=== PATIENT | female | born 1935 | race Caucasian/White ===

== ENCOUNTER 2024-10-22 07:38 | Observation (INO) | payer OTHER, SELFPAY ==
[2024-10-22] VITALS (9 sets, daily range): BP systolic 167–199; BP diastolic 78–99; PULSE 58–87; RESP 16–97; TEMP 36.3–37.3; O2SAT 94–98; BMI 19.8
--- NOTE | 2024-10-22 07:49 | XR_ITS ---
Examination: CT brain head without contrast. 2-D sagittal coronal reconstructions Date and time of exam:October 22, 2024 0756 hours INDICATIONS: Stroke alert, onset dizziness today CTDI: vol (mGy):46.4 DLP: (mGycm):910 Technique: Multiple CT axial sections of the brain have been obtained, 5 mm slice thickness. Contrast has not been administered. 2-D sagittal, coronal reconstructions have been obtained Low dose protocols were performed. One or more of the following dose reduction techniques were used; automated exposure control, adjustment of the mA and/or KV according to patient size, use of iterative reconstruction technique. Findings: No significant ventricular enlargement. Intra-axial or extra-axial hemorrhage density is not seen. No mass effect or midline shift Basal cisterns are not remarkable. Fourth ventricle is midline. Cranial vault intact. Impression: Negative for acute hemorrhage, mass effect or midline shift
--- NOTE | 2024-10-22 07:49 | EKG_ITS ---
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: : 1935 Requested By: Kimi Hung Order Number: [id number] Reading MD: Kimi Hung Measurements Intervals [place] Rate: 61 P: HI: QRS: -10 QRSD: 93 T: 76 QT: 421 QTc: 425 Interpretive Statements SUPRAVENTRICULAR RHYTHM VOLTAGE CRITERIA FOR LVH [MEETS CRITERIA IN ONE OF: R(aVL), S(V1), R(V5), R(V5/V6)+S(V1)] POSSIBLE SEPTAL MYOCARDIAL INFARCTION , OF INDETERMINATE AGE [30 ms Q WAVE IN V1/V2] Compared to ECG 03/30/2022 06:57:26 Supraventricular rhythm now present Myocardial infarct finding now present Atrial fibrillation no longer present T-wave abnormality no longer present Possible ischemia no longer present /store/S0/[id number]/ecg/[id number].pdf
--- NOTE | 2024-10-22 07:49 | XR_ITS ---
Examination: CTA carotids with intravenous contrast CTA brain, head with intravenous contrast. 2-D sagittal, coronal reconstructions. 3-D reconstructions. Exam date and time: October 22, 2024, 0812 hours INDICATIONS: Stroke alert, onset focal neurologic deficit today CTDI: vol (mGy) 14.5 DLP: (mGycm) 397 Technique: Multiple CTA axial brain, head carotid images post intravenous contrast injection 100 cc, Isovue-370. 2-D sagittal, coronal reconstructions. 3-D reconstructions, 3-D post processing including vascular maximum intensity projection images. Low dose protocols were performed. One or more of the following dose reduction techniques were used; automated exposure control, adjustment of the mA and/or KV according to patient size, use of iterative reconstruction technique. Findings: Calcified granuloma in the right upper lobe No significant common carotid carotid bifurcation or internal carotid artery stenoses Mildly dominant left vertebral artery, 70% stenosis proximal right vertebral artery Irregularity of posterior cerebral artery branches but no large vessel cerebral arterial occlusions IMPRESSION: No significant carotid artery stenoses in the neck 70% stenosis proximal right vertebral artery, consider carotid vertebral sonography follow-up to assess for retrograde flow in the right vertebral artery No cerebral large vessel arterial occlusions or thrombus
--- NOTE | 2024-10-22 07:49 | XR_ITS ---
Examination: AP chest single view Technique one AP portable upright chest single view Date and time: October 22, 2024, 0937 hrs., Comparison May 13, 2014 Indications: Chest pain today Findings: Mild prominence left ventricle. No pneumonia or pulmonary edema. Severe osteopenia. Impression: No pneumonia or pulmonary edema.
--- NOTE | 2024-10-22 08:32 | PD.EDDIZZY ---
ED Dizzyness RME/HPI General Chief Complaint: Dizziness Stated Complaint: DIZZY, FALL, HIT L) SIDE OF FACE, LAC L) ARM, PEREZ Time Seen by Provider: 10/22/24 07:49 Arrival date/time: 10/22/24 07:38 RME / HPI RME / HPI Narrative: 89 year old female with history of dementia, CVA, hypertension, and colon cancer presents to the ED brought in by daughter for evaluation of dizziness beginning this morning. Per daughter, patient also suffered a ground level fall, striking the left side of face and left arm on the floor. In the ED, the patient states she doesn't recall what occurred. Daughter mentioned patient had a stroke several years back and had experienced similar dizziness. Related Data Home Medications ?Medication ?Instructions ?Recorded ?Confirmed diltiazem HCl 240 mg 240 mg PO QDAY 12/07/17 10/22/24 capsule,extended release 24 hr famotidine 20 mg tablet 20 mg PO DAILY 12/08/17 10/22/24 calcium 600 mg (as 1 tab PO BID 10/22/24 10/22/24 carbonate)-vitamin D3 10 mcg (400 unit) tablet clopidogrel 75 mg tablet 75 mg PO QAM 10/22/24 10/22/24 donepezil 5 mg tablet 5 mg PO QDAY 10/22/24 10/22/24 ezetimibe 10 mg-simvastatin 10 mg 1 tab PO QPM 10/22/24 10/22/24 tablet lisinopril 40 mg tablet 40 mg PO QAM 10/22/24 10/22/24 memantine 5 mg tablet 5 mg PO BID 10/22/24 10/22/24 raloxifene 60 mg tablet 60 mg PO QDAY 10/22/24 10/22/24 Allergies Allergy/AdvReac Type Severity Reaction Status Date / Time codeine Allergy Severe Nausea Verified 10/22/24 07:40 Review of Systems Review of Systems Systems Reviewed: All systems reviewed, normal except as documented Past Medical History Past Medical History NEUROLOGIC: Positive Neurological Disorders, Transient Ischemic Attacks (TIA) and Dementia CARDIAC: Positive Cardiac Disorders, Hypercholesterolemia and Hypertension GASTROINTESTINAL: Positive Colorectal Cancer MUSCULOSKELETAL: Positive Musculoskeletal Disorders and Arthritis ENT: Positive Cataracts OTHER HISTORY: Positive Colorectal Cancer Surgical History SURGICAL: Positive Bowel Surgery and Section Social History SMOKING STATUS: Never smoker ED Exam Narrative Physical exam: GENERAL APPEARANCE: alert and oriented x 4, well-developed, well-nourished, no acute distress HEENT: Normocephalic, ecchymosis left cheek; pupils equal, round, reactive to light; EOMI; mucous membranes pink, moist; oropharynx clear NECK: Supple LUNGS: CTABL; no wheezes, no rales, no rhonchi HEART: Regular rate, regular rhythm; normal S1, S2; no murmurs ABDOMEN: non distended; normal BS; soft, no tenderness, no guarding, no rebound; no masses, no organomegaly, no hernia BACK: no CVA tenderness EXTREMITIES: skin tear to the left forearm; no edema NEUROLOGIC: awake; appears slightly confused; cranial nerves II-XII grossly intact; no focal sensory or motor deficits PSYCHIATRIC: appears slightly confused SKIN: warm, dry, normal color; no rashes Course Course Course Narrative: 0746: Evaluated in [facility] 1 0749: Stroke alert activated 0915: I spoke with resident Dr. Young working with Dr. Knowles. Discussed patients PMHx, HPI, ED course, exam findings, labs, and radiology results. The hospitalist agree to accept the patient for admission. Quality Measures Suspected type of Stroke: Non Acute Last known well (date): 10/21/24 Last know well: unknown Tenecteplase given: Reason(s) TPA not given: Outside the time window not given stroke Orders Category Date Time Status Bedside Blood Glucose NOW Care 10/22/24 07:49 Active Drug Coordinator NOW Care 10/22/24 07:49 Active Continuous Pulse Oximetry NOW Care 10/22/24 07:49 Completed EKG (ED ONLY) *Do not use* NOW Care 10/22/24 07:49 Completed In and Out Catheter NEEDED Care 10/22/24 07:49 Active Insert IV NOW Care 10/22/24 07:49 Active NIH Stroke Scale now Care 10/22/24 07:49 Active NPO NOW Care 10/22/24 07:49 Active Nurse Swallow Screen x1 Care 10/22/24 07:49 Completed Consult to Neurology / Tele-Neurology Routine Cons 10/22/24 07:[address] angio stroke protocol Stat Exams 10/22/24 07:[address] stroke protocol Stat Exams 10/22/24 07:49 Completed EKG (ED Only) Stat Exams 10/22/24 07:49 Draft XR chest 1V portable Stat Exams 10/22/24 07:49 Completed B-Type Natriuretic Peptide Stat Lab 10/22/24 08:35 Completed CBC Stat Lab 10/22/24 08:35 Completed Comprehensive Metabolic Panel Stat Lab 10/22/24 08:35 Completed Drug Screen,Urine Stat Lab 10/22/24 10:28 Completed Magnesium Stat Lab 10/22/24 08:35 Completed Partial Thromboplastin Time Stat Lab 10/22/24 08:35 Completed Prothrombin Time with INR Stat Lab 10/22/24 08:35 Completed Troponin I Stat Lab 10/22/24 08:35 Completed Urinalysis Stat Lab 10/22/24 10:28 Completed Urine Culture Stat Lab 10/22/24 10:28 Received Oxygen Delivery NOW RT 10/22/24 07:49 Active Vital Signs Vital signs: Vital Signs Temperature 98.1 F 10/22/24 07:44 Pulse Rate 68 10/22/24 07:44 Respiratory Rate 17 10/22/24 07:44 Blood Pressure 168/81 H 10/22/24 07:44 Pulse Oximetry (%) 98 10/22/24 07:44 Oxygen Delivery Method Room Air 10/22/24 07:44 Pulse ox is 98% on room air which is adequate. Dizziness MDM Narrative MDM Narrative:: IGlenys am scribing for and in the presence of Dr. Caceres. Patient data External records reviewed:: [facility] previous records (I reviewed admission from 03/30/2022 through 04/01/2024 ) Clinical information provided by:: family (daughter provides history ) Social determinants that could affect healthcare access:: none Patient has the following chronic illnesses:: dementia, CVA, hypertension, and colon cancer How is presenting disease/condition affected by chronic disease/condition?: exacerbated by Evaluation data The following diagnostics were reviewed and interpreted by me:: lab results, radiology exam(s) and EKG tracing(s) (10/22/2024 @ 08:33 AM. Sinus rhythm, Q-wave in V1 and V2, mild ST depression in V6, no acute ischemic changes. ) Lab and/or radiology exams considered but not ordered:: None Interpretation Summary: Ordering Physician: Kimi Caceres MD Date of Service: 10/22/24 Procedure(s): CT stroke protocol Accession Number(s): [id number] cc: Anuel Lockett MD; Kimi Caceres MD~ Examination: CT brain head without contrast. 2-D sagittal coronal reconstructions Date and time of exam:October 22, 2024 0756 hours INDICATIONS: Stroke alert, onset dizziness today CTDI: vol (mGy):46.4 DLP: (mGycm):910 Technique: Multiple CT axial sections of the brain have been obtained, 5 mm slice thickness. Contrast has not been administered. 2-D sagittal, coronal reconstructions have been obtained Low dose protocols were performed. One or more of the following dose reduction techniques were used; automated exposure control, adjustment of the mA and/or KV according to patient size, use of iterative reconstruction technique. Findings: No significant ventricular enlargement. Intra-axial or extra-axial hemorrhage density is not seen. No mass effect or midline shift Basal cisterns are not remarkable. Fourth ventricle is midline. Cranial vault intact. Impression: Negative for acute hemorrhage, mass effect or midline shift Dictated By: Anuel Lockett MD Signed By: <Electronically signed by Anuel Lockett MD in [place]> 10/22/24 0815 Ordering Physician: Kimi Caceres MD Date of Service: 10/22/24 Procedure(s): CT angio stroke protocol Accession Number(s): [id number] cc: Anuel Lockett MD; Kimi Caceres MD~ Examination: CTA carotids with intravenous contrast CTA brain, head with intravenous contrast. 2-D sagittal, coronal reconstructions. 3-D reconstructions. Exam date and time: October 22, 2024, 0812 hours INDICATIONS: Stroke alert, onset focal neurologic deficit today CTDI: vol (mGy) 14.5 DLP: (mGycm) 397 Technique: Multiple CTA axial brain, head carotid images post intravenous contrast injection 100 cc, Isovue-370. 2-D sagittal, coronal reconstructions. 3-D reconstructions, 3-D post processing including vascular maximum intensity projection images. Low dose protocols were performed. One or more of the following dose reduction techniques were used; automated exposure control, adjustment of the mA and/or KV according to patient size, use of iterative reconstruction technique. Findings: Calcified granuloma in the right upper lobe No significant common carotid carotid bifurcation or internal carotid artery stenoses Mildly dominant left vertebral artery, 70% stenosis proximal right vertebral artery Irregularity of posterior cerebral artery branches but no large vessel cerebral arterial occlusions IMPRESSION: No significant carotid artery stenoses in the neck 70% stenosis proximal right vertebral artery, consider carotid vertebral sonography follow-up to assess for retrograde flow in the right vertebral artery No cerebral large vessel arterial occlusions or thrombus Dictated By: Anuel Lockett MD Signed By: <Electronically signed by Anuel Lockett MD in [place]> 10/22/24 0836 Ordering Physician: Kimi Caceres MD Date of Service: 10/22/24 Procedure(s): XR chest 1V portable Accession Number(s): [id number] cc: Chirag Fernández MD; Anuel Lockett MD; Kimi Caceres MD~ Examination: AP chest single view Technique one AP portable upright chest single view Date and time: October 22, 2024, 0937 hrs., Comparison May 13, 2014 Indications: Chest pain today Findings: Mild prominence left ventricle. No pneumonia or pulmonary edema. Severe osteopenia. Impression: No pneumonia or pulmonary edema. Dictated By: Anuel Lockett MD Signed By: <Electronically signed by Anuel Lockett MD in [place]> 10/22/24 1044 Medications / Prescriptions Medications or Prescriptions considered but not ordered:: None Medication administrations:: Medication Administration History Acetaminophen (Acetaminophen 325 Mg Tablet) 650 mg PO Q6H PRN PRN Reason: Fever >100.4 Stop: 11/21/24 10:57 Aspirin (Aspirin Ec 81 Mg Tabec) 81 mg PO QDAY KALLI Stop: 11/22/24 08:59 Atorvastatin Calcium (Atorvastatin Calcium 20 Mg Tablet) 20 mg PO HS PENDING SALE TO [facility] Stop: 11/21/24 20:59 Clopidogrel Bisulfate (Clopidogrel Bisulfate 75 Mg Tablet) 75 mg PO QDAY PENDING SALE TO [facility] Stop: 11/22/24 08:59 Docusate Sodium (Docusate Sod 100 Mg Capsule) 100 mg PO QDAY PRN; Protocol PRN Reason: CONSTIPATION Stop: 11/21/24 11:02 Donepezil HCl (Donepezil Hcl 5 Mg Tablet) 5 mg PO QDAY PENDING SALE TO [facility] Stop: 11/21/24 13:59 Famotidine (Famotidine 20 Mg Tablet) 20 mg PO DAILY PENDING SALE TO [facility] Stop: 11/21/24 11:14 Last Admin: 10/22/24 12:27 Dose: 20 mg Documented By: PAT Heparin Sodium (Porcine) (Heparin Sod Inj 5000 Unit/Ml Vial) 5,000 unit SC Q8HR PENDING SALE TO [facility] Stop: 11/05/24 13:59 Hydralazine HCl (Hydralazine Inj 20 Mg/Ml Vial) 10 mg IVP Q8H PRN PRN Reason: SBP > 220, DBP >120 Stop: 11/21/24 15:59 Sodium Chloride (Ns) 1,000 mls @ 80 mls/hr IV .[id number] PENDING SALE TO [facility] Stop: 10/23/24 00:14 Last Admin: 10/22/24 12:28 Dose: 80 mls/hr Documented By: PAT Lisinopril (Lisinopril 20 Mg Tablet) 40 mg PO QAM PENDING SALE TO [facility] Stop: 11/21/24 14:29 Meclizine HCl (Meclizine Hcl 25 Mg Tablet) 25 mg PO TID PRN PRN Reason: DIZZINESS Stop: 11/21/24 13:24 Memantine (Memantine Hcl 5 Mg Tablet) 5 mg PO BID PENDING SALE TO [facility] Stop: 11/21/24 13:59 Ondansetron HCl (Ondansetron Inj 2 Mg/Ml Inj 2 Ml) 4 mg IVP Q6H PRN; Protocol PRN Reason: NAUSEA OR VOMITING Stop: 11/21/24 10:57 Raloxifene HCl (Raloxifene 60 Mg Tablet) 60 mg PO QDAY PENDING SALE TO [facility] Stop: 11/21/24 13:59 Sennosides (Senna Tablet) 1 tab PO QDAY PRN; Protocol PRN Reason: constipation Stop: 11/21/24 10:57 Discontinued Medications Acetaminophen (Acetaminophen 325 Mg Tablet) 650 mg PO Q6H PRN PRN Reason: Fever >101.5 Stop: 11/21/24 10:57 Aspirin (Aspirin 325 Mg Tablet) 325 mg PO X1 ONE Stop: 10/22/24 11:31 Last Admin: 10/22/24 12:27 Dose: 325 mg Documented By: PAT Clopidogrel Bisulfate (Clopidogrel Bisulfate 75 Mg Tablet) 75 mg PO X1 ONE Stop: 10/22/24 11:13 Last Admin: 10/22/24 12:06 Dose: Not Given Documented By: PAT Non-Admin Reason: Other, see note Comments: Patient took this med at home this AM None Consultations Consultation(s) initiated? (list below): Yes Consultation #1 (Physician, Specialty, Details): I spoke with teleneurologist Dr. Amaya, states patient is not a TNK candidate. Time: 08:11 Diagnosis Most likely diagnosis given after review of the tests above:: Dizziness Admission Indicated Admission indicated?: indicated Admission Request Was there a request for admission?: Yes Admission Attestation Admission request attestation: Discussed case with [] from Hospitalist service regarding admission. Discussed patients ED course, exam findings, labs, and radiology results. The Hospitalist [agrees,declines] to accept the patient for admission. Disposition Plan Disposition Plan: Admit Discharge Plan Plan Patient Disposition: Admit Acute Care w/in Hospital Problem List Clinical Impression: Dizziness
--- NOTE | 2024-10-22 08:35 | PRELIM_ITS ---
CT scan of the head without intravenous contrast (axial sections with sagittal and coronal reformats) October 22, 2024 0756 hours Clinical history: Focal neuro deficit, stroke suspected. Reference is made to the prior report dated March 30, 2022. Findings: There is no evidence of intracranial hemorrhage, mass effect or midline shift. There are diffuse periventricular white matter hypodensities, compatible with chronic small vessel ischemia. There is moderate volume loss. There is atheromatous calcification of the intracranial arteries. 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 The calvarium is unremarkable. The mastoid air cells and the visualized paranasal sinuses are clear. Impression: No evidence of intracranial hemorrhage, mass effect or midline shift. Periventricular chronic small vessel ischemia and volume loss. No significant interval change as compared with the prior report. Discussion Details: Results verbally communicated to : Dr. Caceres at 08:26 AM 10/22/2024 Report Electronically Signed By: Veronica Mcintyre 10/22/2024 8:34:51 AM [EST]
[2024-10-22 08:53] LABS: Basophils # (Auto) 0.0 Thou/mm3 (0.0-0.2); Basophils % (Auto) 0 % (0-2.5); Eosinophils # (Auto) 0.2 Thou/mm3 (0.0-0.5); Eosinophils % (Auto) 3 % (0-10); Hematocrit 39.6 % (36.0-46.0); Hemoglobin 13.1 g/dL (12.0-16.0); Immature Granulocytes Auto 0.01 Thou/mm3 (0.00-0.00); Lymphocytes # (Auto) 1.8 Thou/mm3 (1.0-4.8); Lymphocytes % (Auto) 25 % (10-50); Mean Corpuscular HGB Conc 33.1 g/dl (31.0-37.0); Mean Corpuscular Hemoglobin 30.4 pg (25.0-35.0); Mean Corpuscular Volume 92 fL (80-100); Monocytes # (Auto) 0.4 Thou/mm3 (0.0-0.8); Monocytes % (Auto) 5 % (0-12); Neutrophils # (Auto) 4.7 Thou/mm3 (1.8-7.7); Neutrophils % (Auto) 66 % (37-80); Nucleated Red Blood Cell # 0.00 Thou/mm3 (0.00-0.00); Nucleated Red Blood Cell % 0 /100 WBC (0); Platelet Count 208 Thou/mm3 (140-440); RDW Standard Deviation 43.8 fL (36.4-46.3); Red Blood Count 4.31 Miln/mm3 (4.00-5.20); White Blood Count 7.1 Thou/mm3 (3.6-11.0)
[2024-10-22 09:17] LABS: Alanine Aminotransferase 13 U/L (10-49); Albumin, Serum 3.8 gm/dL (3.4-4.8); Albumin/Globulin Ratio 2.0 (1.2-2.2); Alkaline Phosphatase 62 U/L (46-116); Anion Gap 9 (7-16); Aspartate Amino Transferase 19 U/L (0-34); BUN/Creatinine Ratio 13 Ratio (12-20); Bilirubin,Total 0.8 mg/dL (0.3-1.2); Blood Urea Nitrogen 13 mg/dL (9-23); Calcium 8.9 mg/dL (8.3-10.6); Calcium (Corrected) 9.1 mg/dL (8.5-10.1); Carbon Dioxide 23.9 mMol/L (20.0-31.0); Chloride 108 mMol/L (98-107); Creatinine (Component) 1.0 mg/dL (0.6-1.3); Estimated Creatinine Clearance 33.1 mL/min (>60); Globulin 1.9 gm/dL (2.3-3.5); Glucose 115 mg/dL (74-106); Magnesium 2.0 mg/dL (1.6-2.6); Osmolality,Calculated 282 (275-295); Potassium 3.6 mMol/L (3.4-5.1); Sodium 141 mMol/L (136-145); Total Protein 5.7 gm/dL (5.7-8.2); Troponin I < 0.020 ng/mL (0.0-0.045); eGFR 54 See Note
[2024-10-22 09:30] LABS: B-Type Natriuretic Peptide 99 pg/mL (0-100)
[2024-10-22 09:46] LABS: INR 1.1 (0.9-1.3); Partial Thromboplastin Time 24.4 Seconds (22.0-36.0); Prothrombin Time 11.5 Seconds (9.0-12.2)
[2024-10-22 10:42] LABS: Collection Type, Urine Catheter
--- NOTE | 2024-10-22 10:56 | ESHP_ITS ---
<Statement entered by Gal Castro MD - 10/23/24 09:06> Patient was examined and case was reviewed with team including attending physician. Note reviewed, I agree with most of its contents and agree with the patient's care as documented by Dr. Gutierrez 89-year-old female with past medical history of dementia, prior CVA, hypertension, history of colon cancer who presented to the ED due to new onset dizziness since this morning. Patient that morning had ground-level fall hurting her arms. Patient also complaining of headache which resolved while here in the ED. Daughter also endorses some drooping of the left eye. Stroke alert was called and patient was admitted for CVA workup. CT head negative for acute hemorrhage, midline shift, mass effect, CTA head and neck negative for LVO. Patient will undergo workup including MRI brain, echocardiogram with bubble study. Will allow permissive hypertension at this time. Case discussed with my attending Dr. Benson Castro MD PGY-2 Disclaimer: Despite multiple revisions, due to the dictation software being used, the document bellow may not be free of grammatical errors including phonetic/typographic errors. However, this does not deter from our commitment to providing health care in the patient's best interest in mind. Documentation for date of: 10/22/24 HPI History of Present Illness History of present illness: Pt is an 89 y.o F with PMH of dementia, CVA, hypertension, and colon cancer presented to the ED brought in by daughter, Rosa, for evaluation of dizziness beginning this morning. Daughter states that pt suffered a ground level fall leading to injury of her left arm and the left side of her face. Pt's left eye is swollen and drooping but pt denies any acute changes to vision. Pt endorses headache with pain located towards the back of her head which began after her fall but states that it has now resolved. The patient states that she doesn't recall what occurred or where her fall occurred, just that she fell at some point in the night. Daughter mentioned patient had a stroke several years back and had experienced similar dizziness and drooping of the left eyelid. Last known well time is unknown at this time. At baseline, patient is reported to be independent and lives with her son in the home per daughter. Per daughter, pt consistently is taking her medication as prescribed to the best of her knowledge. Pt was admitted for CVA rule out. ED Course: - Vitals: BP 168/81, HR 68, RR 17, T 98.1F, O2 sat 98% on room air. - Labs: Hgb 13.1, WBC 7.1; sodium 141, potassium 3.6, eGFR 54, glucose 115. UA: (+) Leukocyte Esterase and 7 RBC's . - Imaging: Head CT: No hemorrhage, mass effect, or midline shift; Head Neck CTA: No neck arterial stenosis. 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 Review of Systems Review of Systems Narrative Review of Systems: GENERAL: Denies fevers/chills or diaphoresis. HEENT: Denies visual/hearing changes. Reports headache with pain radiating towards the back of her head. Swelling of the L orbit noted. NEURO: Denies unusual weakness or difficulty speaking. Pts cognition at baseline CARDIO: Denies chest pain or palpitations. PULM: Denies SOB, coughing, or wheezing. Denies any sputum production GI: Endorses nausea and vomiting. Denies abdominal pain, hematuria, diarrhea, or constipation URO: Denies burning/itching/pain/urinary changes. MSK/EXT/SKIN: Denies joint/skeletal/muscle pain. Laceration noted on L arm. B ruising on R arm noted. Past Medical History Past Medical History Comments PMH COMMENT: PMH: CVA without residual deficits, hypertension, dementia, and colon cancer FH: Hypertension Surgical hx: Cataracts, hysterectomy, colon cancer removal Social hx: Denies alcohol, tobacco, or drug use Travel hx: No recent travel Exam Vital Signs Temp Pulse Resp BP Pulse Ox O2 Del Method 98.1 F 58 L 16 167/78 H 96 Room Air 10/22/24 07:44 10/22/24 08:49 10/22/24 08:49 10/22/24 08:49 10/22/24 08:49 10/22/24 08:49 Narrative Exam General: AOx1 (person only), cooperative, HEENT: ARLENE, neck supple. Trauma to the L orbit noted with swelling present on exam. Heart: RRR, S1 and S2 without clicks or murmurs Lungs: Clear on auscultation bilaterally, no difficulty breathing Abdomen: Soft, nontender. Bowel sounds present on all quadrants, no organomegaly Skin: Intact, no cyanosis or edema noted. Vascular: Peripheral pulses palpable Neuro: No focal neurological deficits noted. L sided eye drooping noted. Bilateral Upper and lower extremity strength 5/5 with sensations intact Results: Labs 10/23/24 04:38 10/23/24 04:38 Labs: Short CBC 10/22/24 Range/Units 08:35 WBC 7.1 (3.6-11.0) Thou/mm3 Hgb 13.1 (12.0-16.0) g/dL Hct 39.6 (36.0-46.0) % Plt Count 208 (140-440) Thou/mm3 BMP 10/22/24 08:35 Sodium 141 Potassium 3.6 Chloride 108 H Carbon Dioxide 23.9 BUN 13 Creatinine 1.0 Glucose 115 H Calcium 8.9 Cardiac Enzymes 10/22/24 Range/Units 08:35 Troponin I < 0.020 (0.0-0.045) ng/mL Liver Function 10/22/24 Range/Units 08:35 Total Bilirubin 0.8 (0.3-1.2) mg/dL AST 19 (0-34) U/L ALT 13 (10-49) U/L Alkaline Phosphatase 62 (46-116) U/L Albumin 3.8 (3.4-4.8) gm/dL Quality Measures Quality Measures stroke Suspected type of Stroke: Unknown at this time Tenecteplase given: Reason(s) Tenecteplase not given: Unable to determine eligibility not given Rehab services: PT evaluation ordered VTE Prophylaxis: pharmaceutical Antithrombotic by day 2:: ordered Statin ordered: not ordered Anticoagulation ordered for A-fib or flutter (current or hx): not indicated Advance care planning discussed with:: patient Medications Home Medications and Allergies Home Medications ?Medication ?Instructions ?Recorded ?Confirmed ?Type diltiazem HCl 240 mg 240 mg PO QDAY 12/07/1710/06 History capsule,extended release 24 hr famotidine 20 mg tablet 20 mg PO DAILY 12/08/1710/06 History calcium 600 mg (as 1 tab PO BID 10/22/24 History carbonate)-vitamin D3 10 mcg (400 unit) tablet clopidogrel 75 mg tablet 75 mg PO QAM 10/22/24 History donepezil 5 mg tablet 5 mg PO QDAY 10/22/24 History ezetimibe 10 mg-simvastatin 10 mg 1 tab PO QPM 5 10/22/24 History tablet lisinopril 40 mg tablet 40 mg PO QAM 10/22/24 History memantine 5 mg tablet 5 mg PO BID 10/22/24 5 History raloxifene 60 mg tablet 60 mg PO QDAY 10/22/2410/22 History Allergies Allergy/AdvReac Type Severity Reaction Status Date / Time codeine Allergy Severe Nausea Verified 10/22/24 07:40 Assessment & Plan Plan Patient is a 87-year-old female with 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 #Left facial drop #Possible CVA Pt presented to hospital with dizziness and acute drooping of L eye along with unwitnessed ground level fall. Pt daughter states that she does not know the last well known time and estimated it to be sometime last night. - tPA not utilized given last known well time > 4.5 hours per current history given - Tele Neuro recommendations at this time are MRI w/o contrast and Meclizine 25 mg PRN for dizziness as needed - Neurology to follow - CT Head: Negative for acute hemorrhage, mass effect, or midline shift - Head neck CTA: Negative for neck carotid arterial stenosis. 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 - Consider restarting home medications of diltiazem-HCL Diet: Clear liquid advance as tolerated after passing swallow eval DVT prophylaxis: Heparin GI prophylaxis: None Code status: Full Code Attending Provider Attestation/Addendum Vidya Mendes DO, attest that I was physically present for the douglas portions of the service and evaluated the patient with the resident and I reviewed and discussed the case with the resident and agree with the resident's findings and plans of care as documented above Patient is an 89-year-old female with past medical history of dementia, CVA, hypertension who was brought to ED after sustaining a ground-level fall. Patient was found by her family members with a gash on her left arm and ecchymosis of her left upper cheek. Son at bedside states patient has always had some ptosis in her left eye. She had been dizzy the day before and had been noted to be unsteady. Patient at baseline can ambulate independently and will walk to the mailbox multiple times a day to check the email. Patient denies any loss of consciousness and states that she had fallen when she went to the bathroom at night. However, the fall was unwitnessed. Patient is at her baseline at this time, confused, but will follow commands. Patient stating that she wants to go home. No focal neurological deficits. Patient currently denies any dizziness. No nystagmus on exam. MS 4+/5 in all four extremities. Stroke alert was called in ED. CT head was negative for any acute intracranial findings. CTA shows 70% stenosis of proximal right vertebral artery. Patient takes aspirin and plavix at home due to previous CVA. Will continue with DAPT. Will allow for permissive HTN at this time. Pending MRI. Will admit to telemetry for cardiac monitoring and neuro checks.
[2024-10-22 11:16] LABS: Bilirubin,Urine Negative (Negative); Blood,Urine Trace (Negative); Clarity,Urine Clear (Clear/Hazy); Color,Urine Colorless (Lt Yel-Yel); Glucose, Urine Trace (Negative); Ketones,Urine Negative (Negative); Leukocyte Esterase,Urine Positive (Negative); Nitrite,Urine Negative (Negative); PH,Urine 7.5 (5.0-7.0); Protein,Urine Negative (Neg - Trace); RBC,Urine 7 /hpf (0-3); Squamous Epithelial Cell,Urine 3 /hpf (0-5); Urobilinogen,Urine Negative mg/dL (0.0-1.0); WBC,Urine 3 /hpf (0-5)
[2024-10-22 11:20] LABS: Amphetamine/Methamp Scrn,U Negative (Negative); Barbiturate Screen,Urine Negative (Negative); Benzodiazepines Screen,Urine Negative (Negative); Benzoylecgonine Screen, Ur Negative (Negative); Fentanyl Screen,Urine Negative (Negative); Opiate Screen,Urine Negative (Negative); Specific Gravity,Urine 1.010 (1.001-1.035); THC Screen,Urine Negative (Negative)
--- NOTE | 2024-10-22 11:46 | PD.TNEURO ---
Tele Neuro Consultation Consultation Date 10/22/24 Most Recent Vital Signs Last Vital Signs Temp 98.1 F 10/22/24 07:44 Pulse 64 10/22/24 11:38 Resp 18 10/22/24 11:38 BP 167/78 H 10/22/24 08:49 Pulse Ox 96 10/22/24 08:49 O2 Del Method Room Air 10/22/24 08:49 Laboratory-Coagulation Panel PT 11.5 Seconds (9.0-12.2) 10/22/24 08:35 INR 1.1 (0.9-1.3) 10/22/24 08:35 APTT 24.4 Seconds (22.0-36.0) 10/22/24 08:35 Consultation Narrative [facility] Patient Name:???Lou Collins Date of :???[id number] Identification Number:??? Date of Service:???10/22/2024 07:52:36 Diagnosis:?R42 - Dizziness/ Vertigo/ Giddiness Impression: ?Lou Collins is a 89 yo F w/ a hx of stroke who presents with dizziness. No focal deficits on exam. Head CT showed no acute intracranial pathology. No LVO on CTA. Ddx includes acute vestibulopathy, posterior circulation ischemic stroke, or orthostatic hypotension. Recommend the following: ?- clarify whether patient on antiplatelet or anticoagulant, can continue upon admission ?- MRI brain w/o contrast ?- if no acute infarct, goal GP is normotension ?- telemetry, TTE, orthostatic vitals ?- Meclizine 25 mg q8 prn for dizziness ?- PT/OT ?- Neurology to follow Our recommendations are outlined below. Recommendations: ? Bedside Swallow Eval ? DVT Prophylaxis ? IV Fluids, Normal Saline ? Head of Bed 30 Degrees ? Euglycemia and Avoid Hyperthermia (PRN Acetaminophen) Sign Out: ? Discussed with Emergency Department Provider Advanced Imaging: CTA Head and Neck Completed. LVO:No Patient is not a candidate for TANIA Metrics: Last Known Well: Unknown Dispatch Time: 10/22/2024 07:52:36 Arrival Time: 10/22/2024 07:48:08 Initial Response Time: 10/22/2024 07:56:32Symptoms: dizziness. Initial patient interaction: 10/22/2024 07:58:36 NIHSS Assessment Completed: 10/22/2024 08:01:47Patient is not a candidate for Thrombolytic. Thrombolytic Medical Decision: 10/22/2024 08:01:53Patient was not deemed candidate for Thrombolytic because of following reasons: LKW outside 4.[address] Head: I personally reviewed all the CT images that were available to me and it showed: no acute intracranial pathology Primary Provider Notified of Diagnostic Impression and Management Plan on: 10/22/2024 08:11:00 History of Present Illness:Patient is a 89 year old Female. Patient was brought by private transportation with symptoms of dizziness. Lou Collins is a 89 yo F w/ a hx of stroke who presents with dizziness. LKN sometime last night. This morning awoke with lightheadedness and vertigo. Symptoms have improved but not resolved. Denies limb weakness or numbness. Denies any headache. Patient thinks she is on a blood thinner but not sure which one. Past Medical History: ?Stroke Medications: Anticoagulant use:??Unknown Antiplatelet use:?Unknown Reviewed EMR for current medications Allergies:? Reviewed Social History: Smoking: No Alcohol Use: No Drug Use: No Family History: There is no family history of premature cerebrovascular disease pertinent to this consultation ROS : 14 Points Review of Systems was performed and was negative except mentioned in HPI. Past Surgical History: There Is No Surgical History Contributory To Today?s Visit Examination: BP(137/93),?Pulse(68),?Blood Glucose(126) 1A: Level of Consciousness - Alert; keenly responsive?+ 0 1B: Ask Month and Age - Both Questions Right?+ 0 1C: Blink Eyes & Squeeze Hands - Performs Both Tasks?+ 0 2: Test Horizontal Extraocular Movements - Normal?+ 0 3: Test Visual Ramirez - No Visual Loss?+ 0 4: Test Facial Palsy (Use Grimace if Obtunded) - Normal symmetry?+ 0 5A: Test Left Arm Motor Drift - No Drift for 10 Seconds?+ 0 5B: Test Right Arm Motor Drift - No Drift for 10 Seconds?+ 0 6A: Test Left Leg Motor Drift - No Drift for 5 Seconds?+ 0 6B: Test Right Leg Motor Drift - No Drift for 5 Seconds?+ 0 7: Test Limb Ataxia (FNF/Heel-Cade) - No Ataxia?+ 0 8: Test Sensation - Mild-Moderate Loss: Less Sharp/More Dull?+ 1 9: Test Language/Aphasia - Normal; No aphasia?+ 0 10: Test Dysarthria - Normal?+ 0 11: Test Extinction/Inattention - No abnormality?+ 0 NIHSS Score:?1 Pre-Morbid Modified [place] Scale:2 Points = Slight disability; unable to carry out all previous activities, but able to look after own affairs without assistance Spoke with :?ED provider This consult was conducted in real time using interactive audio and video technology. Patient was informed of the technology being used for this visit and agreed to proceed. Patient located in hospital and provider located at home/office setting. Patient is being evaluated for possible acute neurologic impairment and high probability of imminent or life-threatening deterioration. I spent total of 26 minutes providing care to this patient, including time for face to face visit via telemedicine, review of medical records, imaging studies and discussion of findings with providers, the patient and/or family. Dr Jones Amaya [facility] For Inpatient follow-up with [facility] physician please call [facility] at . As we are not an outpatient service for any post hospital discharge needs please contact the hospital for assistance. If you have any questions for the [facility] physicians or need to reconsult for clinical or diagnostic changes please contact us via [facility] at . Signature :?Jones Amaya
[2024-10-22] MEDS: FAMOTIDINE 20 MG TABLET PO (12:27)
[2024-10-22] MEDS: SODIUM CHLORIDE 0.9% 1000 ML 1,000 ML 80 ML IV (12:28)
[2024-10-22 12:41] LABS: Creatine Kinase 52 U/L (34-171); Magnesium 1.7 mg/dL (1.6-2.6); Phosphorous 2.8 mg/dL (2.4-5.1)
--- NOTE | 2024-10-22 13:34 | ECHO_ITS ---
Transthoracic Echo Report Ht (in): 65 Wt (lb): 119 Exam Location: Echo Lab Status: Inpatient Development Spec: Yeimy Loving Indications: Procedure Performed: BP: 187 / 95 HR: 66 MEASUREMENTS (Male / Female) Normal Values 2D ECHO LV Diastolic Diameter PLAX 3.7 cm 4.2 - 5.9 / 3.9 - 5.3 cm LV Systolic Diameter PLAX 2.3 cm IVS Diastolic Thickness 1.1 cm 0.6 - 1.0 / 0.6 - 0.9 cm LVPW Diastolic Thickness 1.0 cm 0.6 - 1.0 / 0.6 - 0.9 cm LV Relative Wall Thickness 0.6 LVOT Diameter 1.9 cm LA Volume Index 32.0 cm?/m? 16 - 28 cm?/m? Ascending Aorta Diameter 2.9 cm M-MODE AV Cusp Separation MM 2.0 cm DOPPLER AV Peak Velocity 136.0 cm/s AV Peak Gradient 7.4 mmHg AV Mean Gradient 4.0 mmHg AV Velocity Time Integral 28.5 cm LVOT Peak Velocity 84.6 cm/s LVOT Peak Gradient 2.9 mmHg LVOT Velocity Time Integral 21.6 cm LVOT Cardiac Index 2575.9 cm?/min?m? AV Area Cont Eq vti 2.1 cm? AV Area Cont Eq pk 1.8 cm? MV Area PHT 4.0 cm? Mitral E Point Velocity 37.3 cm/s Mitral A Point Velocity 56.9 cm/s Mitral E to A Ratio 0.7 LV E' Lateral Velocity 5.1 cm/s Mitral E to LV E' Lateral Ratio 7.3 LV E' Septal Velocity 4.6 cm/s Mitral E to LV E' Septal Ratio 8.2 TR Peak Velocity 220.0 cm/s TR Peak Gradient 19.4 mmHg PV Peak Velocity 73.7 cm/s PV Peak Gradient 2.2 mmHg FINDINGS Left Ventricle Normal left ventricular size, wall thickness, systolic function with no obvious regional wall motion abnormalities.Mild LVH. There is grade I diastolic dysfunction of the left ventricle (impaired relaxation pattern). The ejection fraction is visually estimated at 60-65 %. Right Ventricle The right ventricle is normal in size and systolic function. Left Atrium The left atrial cavity size is mildly increased. Right Atrium The right atrium is normal by two-dimensional imaging, color flow and Doppler imaging with no structural abnormalities, no thrombus formation present. Atrial Septum The interatrial septum appears normal with no evidence of a shunt. Aorta The aorta is normal by two-dimensional, color flow and Doppler interrogation. Mitral Valve The mitral valve is normal by two-dimensional, color flow and Doppler interrogation. There is no significant mitral valve regurgitation, stenosis or prolapse. Aortic Valve The aortic valve is trileaflet and normal by two-dimensional, color flow and Doppler interrogation. Trace aortic valve regurgitation. Tricuspid Valve The tricuspid valve is normal by two-dimensional, color flow and Doppler interrogation. There is no significant tricuspid valve regurgitation. Pulmonic Valve The pulmonic valve is not well visualized. There is no significant pulmonic valve regurgitation. Vessels The pulmonary artery appears normal. The inferior vena cava pulmonary and hepatic veins appear normal. Pericardium The pericardium is normal by two-dimensional imaging. There is no significant pericardial effusion. CONCLUSIONS Indication: stoke rule out Normal LV size and function. Estimated EF 60-65% Grade I diastology. Mild LVH Nomal RV size and function Mild Dilated LA Trace AI, TR Prior bubble study 03/09/22 showed negative Debbi Vegas (Electronically Signed) Final Date: 24 October 2024 12:25
[2024-10-22] MEDS: HEPARIN SOD INJ 5000 UNIT/ML VIAL SC ×2 (17:04→21:29)
[2024-10-22] MEDS: hydrOXYzine INJ 25 MG/ML VIAL IM (18:43)
[2024-10-22] MEDS: ATORVASTATIN CALCIUM 20 MG TABLET PO (21:19)
--- NOTE | 2024-10-22 21:23 | PD.NEUROCONS ---
History of Present Illness Data of Consult Requesting Physician: Vidya Knowles DO Primary Care Provider: Chirag Fernández MD Consult Narrative cc:: cc: Vidya Knowles DO Review of Systems Review of Systems Narrative Review of Systems: GENERAL: Denies fevers/chills or diaphoresis. HEENT: Denies visual/hearing changes. Reports headache with pain radiating towards the back of her head. Swelling of the L orbit noted. NEURO: Denies unusual weakness or difficulty speaking. Pts cognition at baseline CARDIO: Denies chest pain or palpitations. PULM: Denies SOB, coughing, or wheezing. Denies any sputum production GI: Endorses nausea and vomiting. Denies abdominal pain, hematuria, diarrhea, or constipation URO: Denies burning/itching/pain/urinary changes. MSK/EXT/SKIN: Denies joint/skeletal/muscle pain. Laceration noted on L arm. Bruising on R arm noted. Past Medical History Past Medical History Comments PMH COMMENT: PMH: CVA without residual deficits, hypertension, dementia, and colon cancer FH: Hypertension Surgical hx: Cataracts, hysterectomy, colon cancer removal Social hx: Denies alcohol, tobacco, or drug use Travel hx: No recent travel Meds Home Medications and Allergies Home Medications ?Medication ?Instructions ?Recorded ?Confirmed ?Type diltiazem HCl 240 mg 240 mg PO QDAY 12/07/17 10/22/24 History capsule,extended release 24 hr famotidine 20 mg tablet 20 mg PO DAILY 12/08/17 10/22/24 History calcium 600 mg (as 1 tab PO BID 10/22/24 10/22/24 History carbonate)-vitamin D3 10 mcg (400 unit) tablet clopidogrel 75 mg tablet 75 mg PO QAM 10/22/24 10/22/24 History donepezil 5 mg tablet 5 mg PO QDAY 10/22/24 10/22/24 History ezetimibe 10 mg-simvastatin 10 mg 1 tab PO QPM 10/22/24 10/22/24 History tablet lisinopril 40 mg tablet 40 mg PO QAM 10/22/24 10/22/24 History memantine 5 mg tablet 5 mg PO BID 10/22/24 10/22/24 History raloxifene 60 mg tablet 60 mg PO QDAY 10/22/24 10/22/24 History Allergies Allergy/AdvReac Type Severity Reaction Status Date / Time codeine Allergy Severe Nausea Verified 10/22/24 07:40 Exam - Neurology Vital Signs Temp Pulse Resp BP Pulse Ox O2 Del Method 97.8 F 87 21 H 175/91 H 94 L Room Air 10/22/24 20:00 10/22/24 20:37 10/22/24 20:37 10/22/24 20:00 10/22/24 20:00 10/22/24 20:00 Results Labs 10/22/24 08:35 10/22/24 08:35 Labs: Short CBC 10/22/24 Range/Units 08:35 WBC 7.1 (3.6-11.0) Thou/mm3 Hgb 13.1 (12.0-16.0) g/dL Hct 39.6 (36.0-46.0) % Plt Count 208 (140-440) Thou/mm3 BMP 10/22/24 08:35 Sodium 141 Potassium 3.6 Chloride 108 H Carbon Dioxide 23.9 BUN 13 Creatinine 1.0 Glucose 115 H Calcium 8.9 Cardiac Enzymes 10/22/24 10/22/24 Range/Units 08:35 11:44 Total Creatine Kinase 52 (34-171) U/L Troponin I < 0.020 (0.0-0.045) ng/mL Liver Function 10/22/24 Range/Units 08:35 Total Bilirubin 0.8 (0.3-1.2) mg/dL AST 19 (0-34) U/L ALT 13 (10-49) U/L Alkaline Phosphatase 62 (46-116) U/L Albumin 3.8 (3.4-4.8) gm/dL Urine 10/22/24 Range/Units 10:28 Urine Color Colorless A (Lt Yel-Yel) Urine Clarity Clear (Clear/Hazy) Urine pH 7.5 H (5.0-7.0) Ur Specific [place] 1.010 (1.001-1.035) Urine Protein Negative (Neg - Trace) Urine Glucose (UA) Trace (Negative) Assessment & Plan Assessment and plan (1) Acute CVA (cerebrovascular accident): Status: Acute Assessment and plan: fu with MRI brain continue with Plavix (2) Dizziness: Status: Acute (3) Hypertension: Status: Acute Assessment and plan: Follow permissive BP control (4) Generalized weakness: Status: Acute Assessment and plan: will consider PT/OT when cooperate (5) Dementia: Status: Acute Assessment and plan: reported baseline dementia, will follow up with brain MRI and EEG to confirm and know the severity. continue Memantine 5 mg bid.
[2024-10-23] VITALS (11 sets, daily range): BP systolic 159–187; BP diastolic 74–95; PULSE 60–84; RESP 17–97; TEMP 36.1–36.6; O2SAT 94–99
--- NOTE | 2024-10-23 | XR_ITS ---
Examinations: MRI Brain without intravenous contrast. MRI brain with intravenous contrast MRA brain with intravenous contrast. MRA brain without intravenous contrast MRA neck with intravenous contrast Date and time of exam: October 23, 2024 0846 hours INDICATIONS: Dizziness episodes after falling yesterday morning, diagnosis hypertension history CVA, history dementia: Cancer Technique: Multiple axial and sagittal images of the brain have been obtained Siemens high-resolution 1.5 Annabella short bore scanner is utilized. Sagittal sections, T1-weighted, TR 500, TE 14 Axial sections proton density and T2-weighted, TR 3,000, TE 34, TR 3,000, TE 91 Inversion recovery axial images, TR 9,260, TE 111, TI 2,500 Diffusion weighted images, axial sections, TR 4,800, TE 128, B value 1,000 Axial sections, ADC map, TR 4,800, TE 128. Contrast images have been obtained post intravenous 20 cc Gadolinium. T1-weighted axial and coronal images post contrast have been obtained. Angiographic images of neck and brain are obtained pre and post contrast. 3-D post processing performed, including brain, extracranial neck arterial maximum intensity projections Findings: Sellaturcica is not enlarged. The optic chiasm and infundibular stalk are not remarkable. Prepontine and interpeduncular cisterns are not enlarged. No localized enlargement of the medulla or venus. Fourth ventricle and cerebellar tonsils normal in position. Subacute hemorrhage is not seen. Fourth ventricle is midline. Mass in the cerebellopontine angle region is not evident. 7th and 8th nerve complexes exhibits symmetry. Globes are symmetrical with no retro-orbital mass. Increased white matter signal prominent Diffusion-weighted images demonstrateno focus of restricted diffusion. Mass-effect upon the ventricular system is not identified. Abnormal contrast enhancement is not seen. MRA brain carotid images no significant carotid stenoses, images are degraded by patient motion, no large vessel occlusions, the left internal carotid artery appears diffusely decreased in caliber Impression: Negative for acute hemorrhage mass effect or midline shift No acute infarct Prominent chronic microvascular white matter change No abnormal enhancing cerebellar or cerebral lesions. Recommend carotid Doppler sonography follow-up to assess vertebral and carotid artery for stenoses, please see the CTA angiogram report October 22, 2024
--- NOTE | 2024-10-23 03:39 | PC.NURSE ---
notified MD Leos of patient blood pressure 181/95 . allowing for permissive HTN. patient has Hydralazine PRN for SBP > 220. notified MD of patient passing bedside swallow eval with RN . to place diet in the morning
[2024-10-23 06:16] LABS: Basophils # (Auto) 0.1 Thou/mm3 (0.0-0.2); Basophils % (Auto) 1 % (0-2.5); Eosinophils # (Auto) 0.1 Thou/mm3 (0.0-0.5); Eosinophils % (Auto) 1 % (0-10); Hematocrit 44.0 % (36.0-46.0); Hemoglobin 14.9 g/dL (12.0-16.0); Immature Granulocytes Auto 0.02 Thou/mm3 (0.00-0.00); Lymphocytes # (Auto) 2.2 Thou/mm3 (1.0-4.8); Lymphocytes % (Auto) 26 % (10-50); Mean Corpuscular HGB Conc 33.9 g/dl (31.0-37.0); Mean Corpuscular Hemoglobin 30.8 pg (25.0-35.0); Mean Corpuscular Volume 91 fL (80-100); Monocytes # (Auto) 0.6 Thou/mm3 (0.0-0.8); Monocytes % (Auto) 7 % (0-12); Neutrophils # (Auto) 5.7 Thou/mm3 (1.8-7.7); Neutrophils % (Auto) 65 % (37-80); Nucleated Red Blood Cell # 0.00 Thou/mm3 (0.00-0.00); Nucleated Red Blood Cell % 0 /100 WBC (0); Platelet Count 206 Thou/mm3 (140-440); RDW Standard Deviation 42.6 fL (36.4-46.3); Red Blood Count 4.84 Miln/mm3 (4.00-5.20); White Blood Count 8.7 Thou/mm3 (3.6-11.0)
[2024-10-23] MEDS: HEPARIN SOD INJ 5000 UNIT/ML VIAL SC ×3 (06:16→21:20)
[2024-10-23 06:57] LABS: Alanine Aminotransferase 12 U/L (10-49); Albumin, Serum 4.0 gm/dL (3.4-4.8); Albumin/Globulin Ratio 1.7 (1.2-2.2); Alkaline Phosphatase 71 U/L (46-116); Anion Gap 14 (7-16); Aspartate Amino Transferase 24 U/L (0-34); BUN/Creatinine Ratio 9 Ratio (12-20); Bilirubin,Total 1.1 mg/dL (0.3-1.2); Blood Urea Nitrogen 6 mg/dL (9-23); Calcium 9.2 mg/dL (8.3-10.6); Calcium (Corrected) 9.2 mg/dL (8.5-10.1); Carbon Dioxide 19.1 mMol/L (20.0-31.0); Cardiac Risk Estimate 2.6 RATIO (3.7-5.6); Chloride 110 mMol/L (98-107); Cholesterol 131 mg/dL (132-200); Creatinine (Component) 0.7 mg/dL (0.6-1.3); Estimated Creatinine Clearance 48.3 mL/min (>60); Globulin 2.3 gm/dL (2.3-3.5); Glucose 85 mg/dL (74-106); HDL Cholesterol 51 mg/dL (40-60); LDL Cholesterol,Calculated 50 mg/dL (0-130); Magnesium 1.8 mg/dL (1.6-2.6); Osmolality,Calculated 281 (275-295); Phosphorous 2.4 mg/dL (2.4-5.1); Potassium 3.6 mMol/L (3.4-5.1); Sodium 143 mMol/L (136-145); Total Protein 6.3 gm/dL (5.7-8.2); Triglycerides 148 mg/dL (30-150); eGFR > 60 See Note
[2024-10-23 07:20] LABS: Glucose Estimated Average 108 mg/dL (80-131); Hemoglobin A1C 5.4 % Hgb (4.8-6.0)
--- NOTE | 2024-10-23 08:56 | ESPR_ITS ---
<Statement entered by Gal Castro MD - 10/23/24 16:49> Patient was examined and case was reviewed with team including attending physician. Note reviewed, I agree with most of its contents and agree with the patient's care as documented by MS Armando Myrick Patient seen and evaluated at the bedside. Vitals and labs reviewed. Patient was admitted for CVA workup. Currently pending echocardiogram with bubble study to rule out any wall abnormalities. MRI of the brain was done and showed Negative for acute hemorrhage mass effect or midline shift. No acute infarct. Prominent chronic microvascular white matter change. No abnormal enhancing cerebellar or cerebral lesions. Will continue to await rest of work up. Case discussed with my attending Dr. Benson Castro MD PGY-2 Disclaimer: Despite multiple revisions, due to the dictation software being used, the document bellow may not be free of grammatical errors including phonetic/typographic errors. However, this does not deter from our commitment to providing health care in the patient's best interest in mind. Documentation for date of: 10/23/24 Subjective Subjective Interval history: pt was seen at bedside today. pt is alert and oriented x2 which is her baseline. pt states that she no longer has the headache that she was complaining about the previous day. pt also states that the pain and swelling around her L eye has gone down. Pt was notified about her imaging findings and recommendations made by neurology. pt states that she still does not have any recollection of what occured that led her to being admitted to the hospital. pt does not have any further questions or conerns at this time. Exam Vital Signs Temp Pulse Resp BP Pulse Ox O2 Del Method 97.1 F 69 19 181/95 H 99 Room Air 10/23/24 03:48 10/23/24 04:00 10/23/24 03:48 10/23/24 03:48 10/23/24 03:48 10/22/24 20:00 Narrative Exam GENERAL: Denies fevers/chills or diaphoresis. HEENT: Denies visual/hearing changes. Denies headache. Swelling of the L orbit noted. Drooping of L eyelid noted NEURO: Denies unusual weakness or difficulty speaking. Pts cognition at baseline CARDIO: Denies chest pain or palpitations. PULM: Denies SOB, coughing, or wheezing. Denies any sputum production GI: Endorses nausea and vomiting. Denies abdominal pain, hematuria, diarrhea, or constipation URO: Denies burning/itching/pain/urinary changes. MSK/EXT/SKIN: Denies joint/skeletal/muscle pain. Laceration noted on L arm. B ruising on R arm noted. Objective Labs 10/24/24 04:35 10/24/24 04:35 Labs: Laboratory Results - last 24 hr 10/22/24 10/22/24 10/22/24 08:35 10:28 11:44 WBC 7.1 RBC 4.31 Hgb 13.1 Hct 39.6 MCV 92 MCH 30.4 MCHC 33.1 RDW Std Deviation 43.8 Plt Count 208 Neut % (Auto) 66 Lymph % (Auto) 25 [place] % (Auto) 5 Eos % (Auto) 3 Baso % (Auto) 0 Neut # (Auto) 4.7 Lymph # (Auto) 1.8 [place] # (Auto) 0.4 Eos # (Auto) 0.2 Baso # (Auto) 0.0 Immature Gran # (Auto) 0.01 H Absolute Nucleated RBC 0.00 Immature Gran % 0 Nucleated RBC % 0 PT 11.5 INR 1.1 APTT 24.4 Sodium 141 Potassium 3.6 Chloride 108 H Carbon Dioxide 23.9 Anion Gap 9 BUN 13 Creatinine 1.0 Estim Creat Clear Calc 33.1 L eGFR 54 L BUN/Creatinine Ratio [address] Glu mg/dL Hemoglobin A1c Calculated Osmolality 282 Calcium 8.9 Corrected Calcium 9.1 Phosphorus 2.8 Magnesium 2.0 1.7 Total Bilirubin 0.8 AST 19 ALT 13 Alkaline Phosphatase 62 Total Creatine Kinase 52 Troponin I < 0.020 B-Natriuretic Peptide 99 Total Protein 5.7 Albumin 3.8 Globulin 1.9 L Albumin/Globulin Ratio 2.0 Triglycerides Cholesterol LDL Cholesterol, Calc HDL Cholesterol Cholesterol/HDL Ratio Ur Collection Type Catheter Urine Color Colorless A Urine Clarity Clear Urine pH 7.5 H Ur Specific [place] 1.010 Urine Protein Negative Urine Glucose (UA) Trace Urine Ketones Negative Urine Blood Trace Urine Nitrite Negative Urine Bilirubin Negative Urine Urobilinogen (Auto) Negative Ur Leukocyte Esterase Positive Urine RBC 7 H Urine WBC 3 Ur Squamous Epith Cells 3 Urine Bacteria None Urine Opiates Screen Negative Urine Fentanyl Screen Negative Ur Barbiturates Screen Negative U Amphetamin/Meth Scrn Negative U Benzodiazepines Scrn Negative U Cocaine Metab Screen Negative U Marijuana (THC) Screen Negative 10/23/24 04:38 WBC 8.7 RBC 4.84 Hgb 14.9 Hct 44.0 MCV 91 MCH 30.8 MCHC 33.9 RDW Std Deviation 42.6 Plt Count 206 Neut % (Auto) 65 Lymph % (Auto) 26 [place] % (Auto) 7 Eos % (Auto) 1 Baso % (Auto) 1 Neut # (Auto) 5.7 Lymph # (Auto) 2.2 [place] # (Auto) 0.6 Eos # (Auto) 0.1 Baso # (Auto) 0.1 Immature Gran # (Auto) 0.02 H Absolute Nucleated RBC 0.00 Immature Gran % 0 Nucleated RBC % 0 PT INR APTT Sodium 143 Potassium 3.6 Chloride 110 H Carbon Dioxide 19.1 L Anion Gap 14 BUN 6 L Creatinine 0.7 Estim Creat Clear Calc 48.3 L eGFR > 60 BUN/Creatinine Ratio 9 L Glucose [address] Glu mg/dL 108 Hemoglobin A1c 5.4 Calculated Osmolality 281 Calcium 9.2 Corrected Calcium 9.2 Phosphorus 2.4 Magnesium 1.8 Total Bilirubin 1.1 AST 24 ALT 12 Alkaline Phosphatase 71 Total Creatine Kinase Troponin I B-Natriuretic Peptide Total Protein 6.3 Albumin 4.0 Globulin 2.3 Albumin/Globulin Ratio 1.7 Triglycerides 148 Cholesterol 131 L LDL Cholesterol, Calc 50 HDL Cholesterol 51 Cholesterol/HDL Ratio 2.6 L Ur Collection Type Urine Color Urine Clarity Urine pH Ur Specific [place] Urine Protein Urine Glucose (UA) Urine Ketones Urine Blood Urine Nitrite Urine Bilirubin Urine Urobilinogen (Auto) Ur Leukocyte Esterase Urine RBC Urine WBC Ur Squamous Epith Cells Urine Bacteria Urine Opiates Screen Urine Fentanyl Screen Ur Barbiturates Screen U Amphetamin/Meth Scrn U Benzodiazepines Scrn U Cocaine Metab Screen U Marijuana (THC) Screen Quality Measures Quality Measures stroke Suspected type of Stroke: Non Acute Last known well (date): 10/21/24 Tenecteplase given: Reason(s) Tenecteplase not given: Outside the time window not given Rehab services: PT evaluation ordered and Speech Language Pathology eval ordered VTE Prophylaxis: pharmaceutical Antithrombotic by day 2:: not indicated (describe) Statin ordered: >75 y/o moderate or high intensity dose Anticoagulation ordered for A-fib or flutter (current or hx): not indicated Advance care planning discussed with:: child Assessment & Plan Assessment Current Active Medications: Generic Name Dose Route Start Last Admin Trade Name Freq PRN Reason Stop Dose Admin Acetaminophen 650 mg 10/22/24 11:07 Acetaminophen 325 Mg Tablet PO 11/21/24 10:57 Q6H PRN Fever >100.4 Aspirin 81 mg 10/23/24 09:00 Aspirin Ec 81 Mg Tabec PO 11/22/24 08:59 QDAY KALLI Atorvastatin Calcium 20 mg 10/22/24 21:00 10/22/24 21:19 Atorvastatin Calcium 20 Mg Tablet PO 11/21/24 20:59 20 mg HS KALLI Administration Clopidogrel Bisulfate 75 mg 10/23/24 09:00 Clopidogrel Bisulfate 75 Mg Tablet PO 11/22/24 08:59 QDAY KALLI Docusate Sodium 100 mg 10/22/24 11:03 Docusate Sod 100 Mg Capsule PO 11/21/24 11:02 QDAY PRN CONSTIPATION Protocol Donepezil HCl 5 mg 10/22/24 14:00 10/22/24 17:02 Donepezil Hcl 5 Mg Tablet PO 11/21/24 13:59 Not Given QDAY KALLI Famotidine 20 mg 10/22/24 11:15 10/22/24 12:27 Famotidine 20 Mg Tablet PO 11/21/24 11:14 20 mg DAILY KALLI Administration Heparin Sodium (Porcine) 5,000 unit 10/22/24 14:00 10/23/24 06:16 Heparin Sod Inj 5000 Unit/Ml Vial SC 11/05/24 13:59 5,000 unit Q8HR KALLI Administration Hydralazine HCl 10 mg 10/22/24 15:52 Hydralazine Inj 20 Mg/Ml Vial IVP 11/21/24 15:59 Q8H PRN SBP > 220, DBP >120 Lisinopril 40 mg 10/22/24 14:30 10/22/24 17:03 Lisinopril 20 Mg Tablet PO 11/21/24 14:29 Not Given QAM KALLI Meclizine HCl 25 mg 10/22/24 13:25 Meclizine Hcl 25 Mg Tablet PO 11/21/24 13:24 TID PRN DIZZINESS Memantine 5 mg 10/22/24 14:00 10/22/24 17:03 Memantine Hcl 5 Mg Tablet PO 11/21/24 13:59 Not Given BID KALLI Ondansetron HCl 4 mg 10/22/24 10:58 Ondansetron Inj 2 Mg/Ml Inj 2 Ml IVP 11/21/24 10:57 Q6H PRN NAUSEA OR VOMITING Protocol Quetiapine Fumarate 12.5 mg 10/22/24 16:44 10/22/24 21:19 Quetiapine Fumarate 25 Mg Tablet PO 11/21/24 20:59 12.5 mg HS PRN Administration Agitation and sleep Raloxifene HCl 60 mg 10/22/24 14:00 10/22/24 17:03 Raloxifene 60 Mg Tablet PO 11/21/24 13:59 Not Given QDAY KALLI Sennosides 1 tab 10/22/24 10:58 Senna Tablet PO 11/21/24 10:57 QDAY PRN constipation Protocol Plan Patient is a 89-year-old female with 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 #Left facial drop #Possible CVA Pt presented to hospital with dizziness and acute drooping of L eye along with unwitnessed ground level fall. Pt daughter states that she does not know the last well known time and estimated it to be sometime last night. Mg and Phosphate levels were within normal parameters. Pt passed swallow evaluation. - Neurology to follow. Current recommendations is EEG order, Continue Plavis, and Atorvastatin 20 mg PO HS. - MRI brain (10/23/2024): chronic microvascular white matter changes. - CT Head: Negative for acute hemorrhage, mass effect, or midline shift - Head neck CTA: Negative for neck carotid arterial stenosis. 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 - Elevate HOB 30 degrees - Regular neuro checks, aspiration precautions PRN #AFib Previous records show ECG with new onset Afib. Pt unable to answer questions regarding previous medical history. Pt's family states that she is prescribed Eliquis but not sure exactly what it is for. - Per Neurology, safe to continue Eliquis. - Per Neurology, hold aspirin until results for MRI are obtained #Hx of Dementia - Resume home Memantine per Neurology #Hx of Hypertension Pt had multiple recordings of blood pressure > 140/80. - Restart lisinopril 40mg- home medication - restart diltiazem HCL 240 mg PO QDAY- home medication for blood pressure control Diet: Clear liquid advance as tolerated after passing swallow eval DVT prophylaxis: Heparin GI prophylaxis: None Code status: Full Code Attending Provider Attestation/Addendum Vidya Mendes DO, attest that I was physically present for the douglas portions of the service and evaluated the patient with the resident and I reviewed and discussed the case with the resident and agree with the resident's findings and plans of care as documented above Patient seen and evaluated this AM. patient remains at baseline mental status, moving all four extremities and is confused. She required ativan for MRI. MRi shows no evidence of acute infarct. Family at bedside updated. Restarted home medications for BP control. Pending EEG. Will f/u with neurology recommendations
--- NOTE | 2024-10-23 10:08 | PC.SS ---
Patient is an 89 year old female presenting to the hospital for dizziness, stroke rule out. Patient was not alert, LOAN REVIEW ANALYST placed phone call to patients next of kin, daughter, Silvano. Silvano confirmed demographic information and stated that her mother lives with her brother at the address on face sheet. Daughter stated that patient does not use any DME at home and does not require any. Daughter sated that her PCP is Dr. Fernández and stated that she had an appointment within the last three months but is unsure of exact date. Patient?s pharmacy of choice is [facility] on [address]. Daughter stated that once patient is medically clear she would like her to return home and family will provide transportation. Silvano stated that in case emergency contacts are not answering to call her daughter Jocelyn Mcclendon at [phone]. Silvano stated that family does not have any SS needs at the moment. PCP: Dr. Fernández D/c: home Decision maker: Silvano Chang [phone]
[2024-10-23] MEDS: DONEPEZIL HCL 5 MG TABLET PO (10:26)
[2024-10-23] MEDS: MEMANTINE HCL 5 MG TABLET PO ×2 (10:26→21:19)
[2024-10-23] MEDS: CLOPIDOGREL BISULFATE 75 MG TABLET PO (10:27)
[2024-10-23] MEDS: FAMOTIDINE 20 MG TABLET PO (10:27)
[2024-10-23] MEDS: ASPIRIN EC 81 MG TABEC PO (10:27)
[2024-10-23] MEDS: RALOXIFENE 60 MG TABLET PO (10:38)
[2024-10-23 12:25] LABS: INR 1.0 (0.9-1.3); Partial Thromboplastin Time 34.3 Seconds (22.0-36.0); Prothrombin Time 11.4 Seconds (9.0-12.2)
--- NOTE | 2024-10-23 12:28 | PC.SS ---
SS update: PT Yasmin recommended short term SNF, but if family decided to take her home, she will need Home health PT/OT and RW. CONDUCTOR PULLMAN met with patients daughter Silvano at bedside to discussion d/c plan. Patients daughter, Silvano would like to take patient home with home health. Patients daughter stated that she would feel more comfortable receiving services at home. Patients daughter stated she would talk it over with family and call CONDUCTOR PULLMAN once family decides HH or SNF. Patient daughter requested that CONDUCTOR PULLMAN order RW.
[2024-10-23 12:35] LABS: Thyroid Stimulating Hormone 8.08 uIU/mL (0.55-4.78)
--- NOTE | 2024-10-23 13:46 | PC.SS ---
Walkers The diagnosis creates mobility limitation that significantly impairs ability to participate in the patients activities of daily living either in their entirety, or in a reasonable time frame. Also the patient is able to safely use the walker and the patient?s mobility is sufficiently resolved with the use of the walker and cane has been ruled out.
--- NOTE | 2024-10-23 14:24 | PD.RESPRO ---
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 10/23/2024: Patient examined at bedside. Patient appears to be waxing and waning. Alert and Orientated to self but unable to state location or time. Patinet unable to recognize daughter at bedside. Purewick noted, but no urine output recorded. Denied abdominal tenderness, despite palpation, no facial grimancing noted. Per daughter at bedside. Concern that patient got up overnight and tried to put on her tennis shoes which may have lead to mechanical fall. Patient denied chest pain or shortness of breath. Denied abdominal tenderness. Denied double vision or headache. Daughter unable to determine if there were any seizure like activity. TSH elevated. Orthostatic Vitals Negative. Echo pending. EEG order, Continue Plavis, and Atorvastatin 20 mg PO HS. MRI brain (10/23/2024): chronic microvascular white matter changes. Exam Vital Signs Temp Pulse Resp BP Pulse Ox O2 Del Method 97.2 F 60 17 170/90 H 95 Room Air 10/23/24 12:00 10/23/24 12:00 10/23/24 12:00 10/23/24 12:00 10/23/24 12:10/23/24 12:00 Narrative Exam General Appearance: Alert & Oriented X1 waxes and wanes, well-nourished female who is lying in bed in no acute distress HEENT: Skull symmetrical and atraumatic. Conjunctivae pale pink and moist. Pupils equal, round, reactive to light and accommodation (PERRL). External ear without lesion or discharge. Straight, nares patient, mucosa pink, no discharge. No thyroid nodule appreciated. No cervical lymphadenopathy. Cardio: Normal Rate and Rhythm with S1 and S2 heart sounds. No murmurs or extra heart sounds auscultated. No bruits on carotid auscultation. No peripheral edema or cyanosis. Lungs: Symmetric with good expansion. Chest and back non-tender. Breath sounds vesicular without crackles, wheezing or rhonchi Abdomen: Non-tender, Non-distended, Normal Reactive Bowel Sounds Neuro: Alert, cooperative, oriented to person, place, and time. Speech clear. CN grossly intact. Upper motor strength 5/5 and Lower motor strength 5/5. Sensation intact. Objective Labs 10/24/24 04:35 10/24/24 04:35 Labs: Laboratory Results - last 24 hr 10/23/24 10/23/24 04:38 11:38 WBC 8.7 RBC 4.84 Hgb 14.9 Hct 44.0 MCV 91 MCH 30.8 MCHC 33.9 RDW Std Deviation 42.6 Plt Count 206 Neut % (Auto) 65 Lymph % (Auto) 26 [place] % (Auto) 7 Eos % (Auto) 1 Baso % (Auto) 1 Neut # (Auto) 5.7 Lymph # (Auto) 2.2 [place] # (Auto) 0.6 Eos # (Auto) 0.1 Baso # (Auto) 0.1 Immature Gran # (Auto) 0.02 H Absolute Nucleated RBC 0.00 Immature Gran % 0 Nucleated RBC % 0 PT 11.4 INR 1.0 APTT 34.3 Sodium 143 Potassium 3.6 Chloride 110 H Carbon Dioxide 19.1 L Anion Gap 14 BUN 6 L Creatinine 0.7 Estim Creat Clear Calc 48.3 L eGFR > 60 BUN/Creatinine Ratio 9 L Glucose [address] Glu mg/dL 108 Hemoglobin A1c 5.4 Calculated Osmolality 281 Calcium 9.2 Corrected Calcium 9.2 Phosphorus 2.4 Magnesium 1.8 Total Bilirubin 1.1 AST 24 ALT 12 Alkaline Phosphatase 71 Total Protein 6.3 Albumin 4.0 Globulin 2.3 Albumin/Globulin Ratio 1.7 Triglycerides 148 Cholesterol 131 L LDL Cholesterol, Calc 50 HDL Cholesterol 51 Cholesterol/HDL Ratio 2.6 L TSH 8.08 H Quality Measures Quality Measures stroke Suspected type of Stroke: Non Acute Last known well (date): 10/21/24 Tenecteplase given: Reason(s) Tenecteplase not given: Outside the time window not given Rehab services: PT evaluation ordered VTE Prophylaxis: pharmaceutical Antithrombotic by day 2:: ordered Statin ordered: <75 y/o high intensity dose Anticoagulation ordered for A-fib or flutter (current or hx): not indicated Advance care planning discussed with:: patient Assessment & Plan Assessment Current Active Medications: Generic Name Dose Route Start Last Admin Trade Name Freq PRN Reason Stop Dose Admin Acetaminophen 650 mg 10/22/24 11:07 Acetaminophen 325 Mg Tablet PO 11/21/24 10:57 Q6H PRN Fever >100.4 Aspirin 81 mg 10/23/24 09:00 10/23/24 10:27 Aspirin Ec 81 Mg Tabec PO 11/22/24 08:59 81 mg QDAY KALLI Administration Atorvastatin Calcium 20 mg 10/22/24 21:00 10/22/24 21:19 Atorvastatin Calcium 20 Mg Tablet PO 11/21/24 20:59 20 mg HS KALLI Administration Clopidogrel Bisulfate 75 mg 10/23/24 09:00 10/23/24 10:27 Clopidogrel Bisulfate 75 Mg Tablet PO 11/22/24 08:59 75 mg QDAY KALLI Administration Docusate Sodium 100 mg 10/22/24 11:03 Docusate Sod 100 Mg Capsule PO 11/21/24 11:02 QDAY PRN CONSTIPATION Protocol Donepezil HCl 5 mg 10/22/24 14:00 10/23/24 10:26 Donepezil Hcl 5 Mg Tablet PO 11/21/24 13:59 5 mg QDAY KALLI Administration Famotidine 20 mg 10/22/24 11:15 10/23/24 10:27 Famotidine 20 Mg Tablet PO 11/21/24 11:14 20 mg DAILY KALLI Administration Heparin Sodium (Porcine) 5,000 unit 10/22/24 14:00 10/23/24 06:16 Heparin Sod Inj 5000 Unit/Ml Vial SC 11/05/24 13:59 5,000 unit Q8HR KALLI Administration Hydralazine HCl 10 mg 10/23/24 13:41 Hydralazine Inj 20 Mg/Ml Vial IVP 11/21/24 15:59 Q8H PRN SBP > 185 Lisinopril 40 mg 10/22/24 14:30 10/23/24 10:27 Lisinopril 20 Mg Tablet PO 11/21/24 14:29 40 mg QAM KALLI Administration Meclizine HCl 25 mg 10/22/24 13:25 Meclizine Hcl 25 Mg Tablet PO 11/21/24 13:24 TID PRN DIZZINESS Memantine 5 mg 10/22/24 14:00 10/23/24 10:26 Memantine Hcl 5 Mg Tablet PO 11/21/24 13:59 5 mg BID KALLI Administration Ondansetron HCl 4 mg 10/22/24 10:58 Ondansetron Inj 2 Mg/Ml Inj 2 Ml IVP 11/21/24 10:57 Q6H PRN NAUSEA OR VOMITING Protocol Quetiapine Fumarate 12.5 mg 10/22/24 16:44 10/22/24 21:19 Quetiapine Fumarate 25 Mg Tablet PO 11/21/24 20:59 12.5 mg HS PRN Administration Agitation and sleep Raloxifene HCl 60 mg 10/22/24 14:00 10/23/24 10:38 Raloxifene 60 Mg Tablet PO 11/21/24 13:59 60 mg QDAY KALLI Administration Sennosides 1 tab 10/22/24 10:58 Senna Tablet PO 11/21/24 10:57 QDAY PRN constipation Protocol Plan Patient is a 89 year old female with a past medical history of hypertension, CVA, 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 #Dizziness #Fall #Left Facial Droop, resolved. #CVA Rule out Patient presented with a possible mechanical fall as patient's family is concern she fell as she was trying to put on her tennis shoes. Given facial droop, negative CT and Negative MRI, consider TIA vs hypertension vs TSH abnormalities, pending Free T4 VS Seizure, EEG pending. MRI: Negative for acute hemorrhage mass effect or midline shift No acute infarct. Prominent chronic microvascular white matter change. No abnormal enhancing cerebellar or cerebral lesions. 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 #Dementia #Alzheimers Patient has a past medical history of demenita. Home medicaiton includes Donepezil and Memantine. Plan -Continue home medication of Donepezil, Memantine #Hypertension During this admission blood pressure continues to be elevated despite resuming home medication of Diltizem 240 mg Qday and Lisinopril 40 mg qday. Plan -Consider adding third agent given hypertensive despite resuming home medication -Continue Diltizem 240 mg and Lisinopril 40 mg qday #History - The patient's plan was discussed with attending Dr. Thiagarajan Danyelle Abreu, MD PGY2 Internal Medicine Attending Provider Attestation/Addendum I personally have seen and examined the patient at the bedside and agreed with the residents findings, assessment and plan of care. Impression Ruled out CVA Altered mental status: Resolving Dementia prominent chronic white matter changes per MRI Continue with memantine donepezil and vascular risk factors controlled with home meds. Consider physical therapy when cooperative.
--- NOTE | 2024-10-23 16:00 | PC.SS ---
LINEN ROOM HOUSEPERSON made doctors aware that patient is wanting HH.
[2024-10-23 18:04] LABS: Free T4 (Free Thyroxine) 0.82 ng/dL (0.89-1.76)
[2024-10-23] MEDS: ATORVASTATIN CALCIUM 20 MG TABLET PO (21:19)
[2024-10-24] VITALS (8 sets, daily range): BP systolic 139–181; BP diastolic 70–84; PULSE 60–84; RESP 14–97; TEMP 36.1–36.7; O2SAT 95–98; BMI 19.4; BMI 13.0
[2024-10-24] MEDS: HEPARIN SOD INJ 5000 UNIT/ML VIAL SC (05:14)
[2024-10-24 05:41] LABS: Basophils # (Auto) 0.1 Thou/mm3 (0.0-0.2); Basophils % (Auto) 1 % (0-2.5); Eosinophils # (Auto) 0.2 Thou/mm3 (0.0-0.5); Eosinophils % (Auto) 3 % (0-10); Hematocrit 41.1 % (36.0-46.0); Hemoglobin 13.8 g/dL (12.0-16.0); Immature Granulocytes Auto 0.03 Thou/mm3 (0.00-0.00); Lymphocytes # (Auto) 2.2 Thou/mm3 (1.0-4.8); Lymphocytes % (Auto) 27 % (10-50); Mean Corpuscular HGB Conc 33.6 g/dl (31.0-37.0); Mean Corpuscular Hemoglobin 30.3 pg (25.0-35.0); Mean Corpuscular Volume 90 fL (80-100); Monocytes # (Auto) 0.6 Thou/mm3 (0.0-0.8); Monocytes % (Auto) 7 % (0-12); Neutrophils # (Auto) 5.1 Thou/mm3 (1.8-7.7); Neutrophils % (Auto) 62 % (37-80); Nucleated Red Blood Cell # 0.00 Thou/mm3 (0.00-0.00); Nucleated Red Blood Cell % 0 /100 WBC (0); Platelet Count 216 Thou/mm3 (140-440); RDW Standard Deviation 42.7 fL (36.4-46.3); Red Blood Count 4.56 Miln/mm3 (4.00-5.20); White Blood Count 8.2 Thou/mm3 (3.6-11.0)
[2024-10-24 06:22] LABS: Alanine Aminotransferase 9 U/L (10-49); Albumin, Serum 3.8 gm/dL (3.4-4.8); Albumin/Globulin Ratio 1.8 (1.2-2.2); Alkaline Phosphatase 66 U/L (46-116); Anion Gap 13 (7-16); Aspartate Amino Transferase 20 U/L (0-34); BUN/Creatinine Ratio 11 Ratio (12-20); Bilirubin,Total 1.1 mg/dL (0.3-1.2); Blood Urea Nitrogen 10 mg/dL (9-23); Calcium 9.1 mg/dL (8.3-10.6); Calcium (Corrected) 9.3 mg/dL (8.5-10.1); Carbon Dioxide 21.9 mMol/L (20.0-31.0); Chloride 109 mMol/L (98-107); Creatinine (Component) 0.9 mg/dL (0.6-1.3); Estimated Creatinine Clearance 37.5 mL/min (>60); Globulin 2.1 gm/dL (2.3-3.5); Glucose 84 mg/dL (74-106); Magnesium 1.8 mg/dL (1.6-2.6); Osmolality,Calculated 284 (275-295); Phosphorous 3.1 mg/dL (2.4-5.1); Potassium 3.5 mMol/L (3.4-5.1); Sodium 144 mMol/L (136-145); Total Protein 5.9 gm/dL (5.7-8.2); eGFR > 60 See Note
[2024-10-24] MEDS: FAMOTIDINE 20 MG TABLET PO (08:54)
[2024-10-24] MEDS: CLOPIDOGREL BISULFATE 75 MG TABLET PO (08:57)
[2024-10-24] MEDS: DONEPEZIL HCL 5 MG TABLET PO (08:57)
[2024-10-24] MEDS: DILTIAZEM CD 120 MG CAPCR 240 MG PO (08:57)
[2024-10-24] MEDS: MEMANTINE HCL 5 MG TABLET PO (08:57)
--- NOTE | 2024-10-24 09:04 | PC.SS ---
CLINICAL REHAB LIAISON submitted DME referral for RW.
[2024-10-24] MEDS: RALOXIFENE 60 MG TABLET PO (09:08)
--- NOTE | 2024-10-24 09:29 | PD.RESPRO ---
Documentation for date of: 10/24/24 Subjective Subjective Interval history: pt was seen at bedside today and is alert and oriented x2, which is her baseline. She was notified about the current neurology reccomendations and told about her upcoming EEG study. She states that she doesnt have any questions or concerns at this time. Exam Vital Signs Temp Pulse Resp BP Pulse Ox O2 Del Method 97.1 F 77 18 173/84 H 98 Room Air 10/24/24 04:00 10/24/24 08:57 10/24/24 08:36 10/24/24 08:57 10/24/24 04:00 10/24/24 04:00 Narrative Exam General Appearance: Alert & Oriented X1 waxes and wanes, well-nourished female who is lying in bed in no acute distress HEENT: Skull symmetrical and atraumatic. Conjunctivae pale pink and moist. Pupils equal, round, reactive to light and accommodation (PERRL). External ear without lesion or discharge. Straight, nares patient, mucosa pink, no discharge. No thyroid nodule appreciated. No cervical lymphadenopathy. Cardio: Normal Rate and Rhythm with S1 and S2 heart sounds. No murmurs or extra heart sounds auscultated. No bruits on carotid auscultation. No peripheral edema or cyanosis. Lungs: Symmetric with good expansion. Chest and back non-tender. Breath sounds vesicular without crackles, wheezing or rhonchi Abdomen: Non-tender, Non-distended, Normal Reactive Bowel Sounds Neuro: Alert, cooperative, oriented to person, place, and time. Speech clear. CN grossly intact. Upper motor strength 5/5 and Lower motor strength 5/5. Sensation intact. Objective Objective Narrative Objective Narrative: pt is alert and oriented x2. pt has clear breath sounds bilaterally. pt's cardiac exam yields regular rate and rhythm w/o murmur. Labs 10/24/24 04:35 10/24/24 04:35 Labs: Laboratory Results - last 24 hr 10/23/24 10/24/24 11:38 04:35 WBC 8.2 RBC 4.56 Hgb 13.8 Hct 41.1 MCV 90 MCH 30.3 MCHC 33.6 RDW Std Deviation 42.7 Plt Count 216 Neut % (Auto) 62 Lymph % (Auto) 27 Dickson % (Auto) 7 Eos % (Auto) 3 Baso % (Auto) 1 Neut # (Auto) 5.1 Lymph # (Auto) 2.2 Dickson # (Auto) 0.6 Eos # (Auto) 0.2 Baso # (Auto) 0.1 Immature Gran # (Auto) 0.03 H Absolute Nucleated RBC 0.00 Immature Gran % 0 Nucleated RBC % 0 PT 11.4 INR 1.0 APTT 34.3 Sodium 144 Potassium 3.5 Chloride 109 H Carbon Dioxide 21.9 Anion Gap 13 BUN 10 Creatinine 0.9 Estim Creat Clear Calc 37.5 L eGFR > 60 BUN/Creatinine Ratio 11 L Glucose 84 Calculated Osmolality 284 Calcium 9.1 Corrected Calcium 9.3 Phosphorus 3.1 Magnesium 1.8 Total Bilirubin 1.1 AST 20 ALT 9 L Alkaline Phosphatase 66 Total Protein 5.9 Albumin 3.8 Globulin 2.1 L Albumin/Globulin Ratio 1.8 TSH 8.08 H Free T4 0.82 L Quality Measures Quality Measures stroke Suspected type of Stroke: Non Acute Last known well (date): 10/21/24 Tenecteplase given: Reason(s) Tenecteplase not given: Outside the time window not given Assessment & Plan Assessment Current Active Medications: Generic Name Dose Route Start Last Admin Trade Name Freq PRN Reason Stop Dose Admin Acetaminophen 650 mg 10/22/24 11:07 Acetaminophen 325 Mg Tablet PO 11/21/24 10:57 Q6H PRN Fever >100.4 Aspirin 81 mg 10/23/24 09:00 10/23/24 10:27 Aspirin Ec 81 Mg Tabec PO 11/22/24 08:59 81 mg QDAY KALLI Administration Atorvastatin Calcium 20 mg 10/22/24 21:00 10/23/24 21:19 Atorvastatin Calcium 20 Mg Tablet PO 11/21/24 20:59 20 mg HS KALLI Administration Clopidogrel Bisulfate 75 mg 10/23/24 09:00 10/24/24 08:57 Clopidogrel Bisulfate 75 Mg Tablet PO 11/22/24 08:59 75 mg QDAY KALLI Administration Diltiazem HCl 240 mg 10/24/24 09:00 10/24/24 08:57 Diltiazem Cd 120 Mg Capcr PO 11/23/24 08:59 240 mg QDAY KALLI Administration Docusate Sodium 100 mg 10/22/24 11:03 Docusate Sod 100 Mg Capsule PO 11/21/24 11:02 QDAY PRN CONSTIPATION Protocol Donepezil HCl 5 mg 10/22/24 14:00 10/24/24 08:57 Donepezil Hcl 5 Mg Tablet PO 11/21/24 13:59 5 mg QDAY KALLI Administration Famotidine 20 mg 10/22/24 11:15 10/24/24 08:54 Famotidine 20 Mg Tablet PO 11/21/24 11:14 20 mg DAILY KALLI Administration Heparin Sodium (Porcine) 5,000 unit 10/22/24 14:00 10/24/24 05:14 Heparin Sod Inj 5000 Unit/Ml Vial SC 11/05/24 13:59 5,000 unit Q8HR KALLI Administration Hydralazine HCl 10 mg 10/23/24 13:41 Hydralazine Inj 20 Mg/Ml Vial IVP 11/21/24 15:59 Q8H PRN SBP > 185 Lisinopril 40 mg 10/22/24 14:30 10/24/24 08:55 Lisinopril 20 Mg Tablet PO 11/21/24 14:29 40 mg QAM KALLI Administration Meclizine HCl 25 mg 10/22/24 13:25 Meclizine Hcl 25 Mg Tablet PO 11/21/24 13:24 TID PRN DIZZINESS Memantine 5 mg 10/22/24 14:00 10/24/24 08:57 Memantine Hcl 5 Mg Tablet PO 11/21/24 13:59 5 mg BID KALLI Administration Ondansetron HCl 4 mg 10/22/24 10:58 Ondansetron Inj 2 Mg/Ml Inj 2 Ml IVP 11/21/24 10:57 Q6H PRN NAUSEA OR VOMITING Protocol Quetiapine Fumarate 12.5 mg 10/22/24 16:44 10/22/24 21:19 Quetiapine Fumarate 25 Mg Tablet PO 11/21/24 20:59 12.5 mg HS PRN Administration Agitation and sleep Raloxifene HCl 60 mg 10/22/24 14:00 10/24/24 09:08 Raloxifene 60 Mg Tablet PO 11/21/24 13:59 60 mg QDAY KALLI Administration Sennosides 1 tab 10/22/24 10:58 Senna Tablet PO 11/21/24 10:57 QDAY PRN constipation Protocol
--- NOTE | 2024-10-24 11:27 | ESDS_ITS ---
<Statement entered by Vidya Knowles DO - 10/25/24 07:47> I, Vidya Knowles DO, attest that I was physically present for the douglas portions of the service and evaluated the patient with the resident and I reviewed and discussed the case with the resident and agree with the resident's findings and plans of care as documented above <Statement entered by Gal Castro MD - 10/25/24 06:36> Patient was examined and case was reviewed with team including attending physician. Note reviewed, I agree with most of its contents and agree with the patient's care. Gal Castro MD PGY-2 Planned Discharge Date 10/24/24 DS: Providers Provider Date of admission: 10/22/24 10:58 Primary care physician: Chirag Fernández MD Admitting Provider: Vidya Knowles DO Attending Provider on Admission: Vidya Knowles DO Consults: 10/22/24 07:49 Consult to Neurology / Tele-Neurology Routine Comment: Consulting Provider: [facility] 10/22/24 11:07 Referral Speech Therapy Stat Comment: 10/22/24 11:11 Referral Physical Therapy Stat Comment: Physician Instructions: 10/22/24 11:14 Consult to Neurology / Tele-Neurology Stat Comment: Consulting Provider: Stevo Barclay Attending Provider on DC: Vidya Knowles MD Discharging Provider: My Walker MD DS: Diagnosis Problem List Completed Was Problem List Reviewed/Reconciled?: Yes Hospital Course Hospital Course Hospital course: Patient is a 89-year-old female with 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 Neurology was consulted and recommended pt undergo Head CT, CTA Head and Neck, and MRI brain. 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 MRI brain showed prominent chronic white matter change. An EEG was done and was unremarkable. Pt was continued on her home medications of atorvastatin, diltiazem HCl, donepezil, and memantine, and lisinopril. Pt arrived to the ED with a BP of 199/99 and had improved BP control after restarting the home medications of lisinopril and diltiazem. Pt remained at her pre-hospitalization baseline in regards to her alertness and orientation during the course of her hospitalization. Pt's eliquis and aspirin was held between 10/22 and 10/24 per recommendation of neurology. pt is medically stable at time of discharge Follow up with primary care physician within 1 week of discahrge Follow up with Neurology within 2 weeks of discahrge Continue plavix and atorvastatin as prescribed or as recommended by neurology Should your symptoms recur or worsen patient is instructed to return to the ED . # Ground level fall # Dizziness # CVA ruled out #AFib #Hx of Dementia #Hx of Hypertension Discharge summary reviewed by Senior resident Dr. Young and attending phsycian Dr. Benson Myrick (Medical Student) Status at Discharge Functional status at discharge: independent ambulation Overall status at discharge: patient is back to baseline Time Spent with Patient Time attestation: Total time spent providing and/or coordinating discharge services: Time spent: Greater than 30 minutes Home Health Home Health Referral Orders: 10/23/24 15:29 Home Health Referral Routine Reason For Exam: dementia Home-Bound The patient must either because of illness or injury, need the aid of supportive devices such as crutches, canes, wheelchairs, and walkers; the use of special transportation; or the assistance of another person in order to leave their place of residence; OR have a condition such that leaving his or her home is medically contraindicated. In addition, the patient also meets the following criteria: patient is normally unable to leave the home and leaving home requires considerable taxing effort. Addendum to Home Health Certification Practitioner's Certification: I certify that the patient has been under my care in the hospital and the care of attending physician (see below). We had a [id number] encounter on (see date below). My clinical findings indicate that the patient is home bound per the above criteria and the Home Health Services noted in these orders are medically necessary. The primary reason for the [id number] encounter is related to the fact that the patient requires home health services. Date Certifying Aeal-yu-[id number] Physician Encounter: 10/22/24 Physician's Name who will Assume Oversight for Services: Chirag Fernández Physician's Phone No.who will Assume Oversight for Service: TUBE HANDLER - Community Resources: No PT to Evaluate: Yes PT to evaluate and provide a treatmnet plan to increase patient's mobility and strength. Wound Care: No IV Therapy: No RN Safety Evaluation: Yes RN to evaluate and create a plan of care that will produce positive outcomes. Palliative Treatment: No Palliative treatment and evaluate the need for hospice. Home Health Aide - Personal Care: Yes Home Health Aide to assist with any ADL's. Exam Vital Signs Temp Pulse Resp BP Pulse Ox O2 Del Method 97.0 F 77 18 173/84 H 97 Room Air 10/24/24 08:00 10/24/24 08:57 10/24/24 08:36 10/24/24 08:57 10/24/24 08:00 10/24/24 08:00 Narrative Exam General Appearance: Alert & Oriented X1 waxes and wanes, well-nourished female who is lying in bed in no acute distress HEENT: Skull symmetrical and atraumatic. Conjunctivae pale pink and moist. Pupils equal, round, reactive to light and accommodation (PERRL). External ear without lesion or discharge. Straight, nares patient, mucosa pink, no discharge. No thyroid nodule appreciated. No cervical lymphadenopathy. Cardio: Normal Rate and Rhythm with S1 and S2 heart sounds. No murmurs or extra heart sounds auscultated. No bruits on carotid auscultation. No peripheral edema or cyanosis. Lungs: Symmetric with good expansion. Chest and back non-tender. Breath sounds vesicular without crackles, wheezing or rhonchi Abdomen: Non-tender, Non-distended, Normal Reactive Bowel Sounds Neuro: Alert, cooperative, oriented to person, place, and time. Speech clear. CN grossly intact. Upper motor strength 5/5 and Lower motor strength 5/5. Sensation intact. Discharge Plan Plan Patient Disposition: Home w/HOME HEALTH Patient condition on transfer: Stable Care Plan Goals: Follow up with primary care physician within 1 week of discahrge Follow up with Neurology within 2 weeks of discahrge Continue plavix and atorvastatin as prescribed or as recommended by neurology Should your symptoms recur or worsen patient is instructed to return to the ED . Prescriptions/Referrals Prescriptions/Med Rec: New atorvastatin 80 mg tablet 80 mg PO QPM Qty: 30 0RF Continued famotidine 20 mg Tablet 20 mg PO DAILY diltiazem HCl 240 mg Capsule,Extended Release 24hr 240 mg PO QDAY lisinopril 40 mg tablet 40 mg PO QAM Patient Comments: TAKE 1 TABLET BY MOUTH EVERY DAY clopidogrel 75 mg tablet 75 mg PO QAM Patient Comments: TAKE 1 TABLET BY MOUTH EVERY DAY IN THE MORNING raloxifene 60 mg tablet 60 mg PO QDAY Patient Comments: TAKE 1 TABLET BY MOUTH EVERY DAY calcium carbonate-vitamin D3 600 mg-10 mcg (400 unit) tablet 1 tab PO BID Patient Comments: TAKE 1 TABLET BY MOUTH TWICE A DAY memantine 5 mg tablet 5 mg PO BID Patient Comments: TAKE 1 TABLET BY MOUTH TWICE A DAY donepezil 5 mg tablet 5 mg PO QDAY Patient Comments: TAKE 1 TABLET BY MOUTH EVERY DAY Discontinued ezetimibe-simvastatin 10-10 mg tablet 1 tab PO QPM Patient Comments: TAKE 1 TABLET BY MOUTH EVERY DAY WITH DINNER Referrals: Chirag Fernández MD [Primary Care Provider] - Patient/Caregiver Discharge Instructions Education Materials: ED TIA: Transient Ischemic Attack, ED Fall Dizziness Weakn Balance Print Language: Tuvaluan Stand Alone Forms: Yamila Award Info., Patient Portal Info Letter Discharge Order Discharge Orders: Discharge (Routine); Ordered 10/24/24 Ordered By: Gal Castro Quality Discharge Quality Measures none
--- NOTE | 2024-10-24 12:57 | PC.SS ---
PIPE COREMAKER submitted referral to [facility] via fax.
--- NOTE | 2024-10-24 13:03 | PC.SS ---
Addendum entered by ALANA Bruce 10/24/24 13:05: PCP: Dr. Fernández Original Note: CONTRACT RUNNER informed patients family Silvano that walker was ordered. Patients family stated they do not have HH preference.
--- NOTE | 2024-10-24 14:40 | PD.RESPRO ---
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 10/23/2024: Patient examined at bedside. Patient appears to be waxing and waning. Alert and Orientated to self but unable to state location or time. Patinet unable to recognize daughter at bedside. Purewick noted, but no urine output recorded. Denied abdominal tenderness, despite palpation, no facial grimancing noted. Per daughter at bedside. Concern that patient got up overnight and tried to put on her tennis shoes which may have lead to mechanical fall. Patient denied chest pain or shortness of breath. Denied abdominal tenderness. Denied double vision or headache. Daughter unable to determine if there were any seizure like activity. TSH elevated. Orthostatic Vitals Negative. Echo pending. MRI brain (10/23/2024): chronic microvascular white matter changes. EEG order, Continue Plavix, and Atorvastatin 20 mg PO HS. 10/24/2024: No overnight events for patient. Patinet continues to be alert and orientated X 2 but waxes and wanes. Patient able to recognize daughter at bedside. Patient denied chest or SOB. Denied headaches or blurry vision overnight. Patient ambulated with assistance and walker but overall unsteady on feet. EEG noted for mild diffuse slowing. Patient refused SNF. Continue Plavix and Atorvastatin. Continue to hold Aspirin. Follow up with Dr. Barclay outpatient within 1-2 weeks. Exam Vital Signs Temp Pulse Resp BP Pulse Ox O2 Del Method 97.7 F 70 18 181/75 H 97 Room Air 10/24/24 12:00 10/24/24 12:00 10/24/24 12:00 10/24/24 12:00 10/24/24 12:00 10/24/24 12:00 Objective Labs 10/24/24 04:35 10/24/24 04:35 Labs: Laboratory Results - last 24 hr 10/23/24 10/24/24 11:38 04:35 WBC 8.2 RBC 4.56 Hgb 13.8 Hct 41.1 MCV 90 MCH 30.3 MCHC 33.6 RDW Std Deviation 42.7 Plt Count 216 Neut % (Auto) 62 Lymph % (Auto) 27 [place] % (Auto) 7 Eos % (Auto) 3 Baso % (Auto) 1 Neut # (Auto) 5.1 Lymph # (Auto) 2.2 [place] # (Auto) 0.6 Eos # (Auto) 0.2 Baso # (Auto) 0.1 Immature Gran # (Auto) 0.03 H Absolute Nucleated RBC 0.00 Immature Gran % 0 Nucleated RBC % 0 Sodium 144 Potassium 3.5 Chloride 109 H Carbon Dioxide 21.9 Anion Gap 13 BUN 10 Creatinine 0.9 Estim Creat Clear Calc 37.5 L eGFR > 60 BUN/Creatinine Ratio 11 L Glucose 84 Calculated Osmolality 284 Calcium 9.1 Corrected Calcium 9.3 Phosphorus 3.1 Magnesium 1.8 Total Bilirubin 1.1 AST 20 ALT 9 L Alkaline Phosphatase 66 Total Protein 5.9 Albumin 3.8 Globulin 2.1 L Albumin/Globulin Ratio 1.8 Free T4 0.82 L Quality Measures Quality Measures none Advance care planning discussed with:: patient Assessment & Plan Assessment Current Active Medications: Generic Name Dose Route Start Last Admin Trade Name Freq PRN Reason Stop Dose Admin Acetaminophen 650 mg 10/22/24 11:07 Acetaminophen 325 Mg Tablet PO 11/21/24 10:57 Q6H PRN Fever >100.4 Clopidogrel Bisulfate 75 mg 10/23/24 09:00 10/24/24 08:57 Clopidogrel Bisulfate 75 Mg Tablet PO 11/22/24 08:59 75 mg QDAY KALLI Administration Diltiazem HCl 240 mg 10/24/24 09:00 10/24/24 08:57 Diltiazem Cd 120 Mg Capcr PO 11/23/24 08:59 240 mg QDAY KALLI Administration Docusate Sodium 100 mg 10/22/24 11:03 Docusate Sod 100 Mg Capsule PO 11/21/24 11:02 QDAY PRN CONSTIPATION Protocol Donepezil HCl 5 mg 10/22/24 14:00 10/24/24 08:57 Donepezil Hcl 5 Mg Tablet PO 11/21/24 13:59 5 mg QDAY KALLI Administration Famotidine 20 mg 10/22/24 11:15 10/24/24 08:54 Famotidine 20 Mg Tablet PO 11/21/24 11:14 20 mg DAILY KALLI Administration Heparin Sodium (Porcine) 5,000 unit 10/22/24 14:00 10/24/24 05:14 Heparin Sod Inj 5000 Unit/Ml Vial SC 11/05/24 13:59 5,000 unit Q8HR KALLI Administration Hydralazine HCl 10 mg 10/23/24 13:41 Hydralazine Inj 20 Mg/Ml Vial IVP 11/21/24 15:59 Q8H PRN SBP > 185 Lisinopril 40 mg 10/22/24 14:30 10/24/24 08:55 Lisinopril 20 Mg Tablet PO 11/21/24 14:29 40 mg QAM KALLI Administration Meclizine HCl 25 mg 10/22/24 13:25 Meclizine Hcl 25 Mg Tablet PO 11/21/24 13:24 TID PRN DIZZINESS Memantine 5 mg 10/22/24 14:00 10/24/24 08:57 Memantine Hcl 5 Mg Tablet PO 11/21/24 13:59 5 mg BID KALLI Administration Ondansetron HCl 4 mg 10/22/24 10:58 Ondansetron Inj 2 Mg/Ml Inj 2 Ml IVP 11/21/24 10:57 Q6H PRN NAUSEA OR VOMITING Protocol Quetiapine Fumarate 12.5 mg 10/22/24 16:44 10/22/24 21:19 Quetiapine Fumarate 25 Mg Tablet PO 11/21/24 20:59 12.5 mg HS PRN Administration Agitation and sleep Raloxifene HCl 60 mg 10/22/24 14:00 10/24/24 09:08 Raloxifene 60 Mg Tablet PO 11/21/24 13:59 60 mg QDAY KALLI Administration Sennosides 1 tab 10/22/24 10:58 Senna Tablet PO 11/21/24 10:57 QDAY PRN constipation Protocol Plan Patient is a 89 year old female with a past medical history of hypertension, CVA, 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 #Dizziness #Fall #Left Facial Droop, resolved. #CVA Ruled out. Patient presented with a possible mechanical fall as patient's family is concern she fell as she was trying to put on her tennis shoes. Given facial droop, negative CT and Negative MRI, consider TIA vs hypertension vs TSH abnormalities, pending Free T4 VS Seizure, EEG pending. EEG: mild diffuse diffuse slowing MRI: Negative for acute hemorrhage mass effect or midline shift No acute infarct. Prominent chronic microvascular white matter change. No abnormal enhancing cerebellar or cerebral lesions. CT head negative Head/Neck CTA: 70% stenosis proximal to right vertebral artery Orthostatics negative TSH: 8.08 (H) Plan -Continue Atorvastatin 20 mg HS, Plavix 75 mg qday -Hold Aspirin 81 mg given fall -continue to monitor BP -replaces electrolytes as needed. #Dementia #Alzheimers Patient has a past medical history of demenita. Home medicaiton includes Donepezil and Memantine. Plan -Continue home medication of Donepezil, Memantinem BS /Ekizudubw #Hypertension During this admission blood pressure continues to be elevated despite resuming home medication of Diltizem 240 mg Qday and Lisinopril 40 mg qday. Plan -Consider adding third agent given hypertensive despite resuming home medication -Continue Diltizem 240 mg and Lisinopril 40 mg qday - The patient's plan was discussed with attending Dr. Ning Abreu MD PGY2 Internal Medicine Attending Provider Attestation/Addendum I personally have seen and examined the patient at the bedside and agreed with the residents findings, assessment and plan of care. Impression Ruled out CVA Altered mental status: Resolving close to baseline confirmed from family, Dementia prominent chronic white matter changes per MRI Continue with memantine donepezil and vascular risk factors controlled with home meds. Patient was able to ambulate with a walker with minimal assistance as at baseline. Stable for discharge home with family, follow-up with me in 2 weeks
--- NOTE | 2024-10-24 15:38 | PC.CC ---
HH referral sent to agencies, patient had no preference
--- NOTE | 2024-10-25 11:12 | PC.CM ---
Patient accepted by [facility]. Start of care date 10/25.
== END 2024-10-24 13:42 | disposition home health service (06) ==
LOC: SERX 09:50 → S2NX 10-23 06:46 → SERHOLD 10-24 06:18 → S2NX 10-24 06:18
PROVIDERS: Admitting Provider Internal Medicine; Emergency Provider Emergency Medicine; PCP Family Medicine; Visit Provider Internal Medicine
DX: R29.810 Facial weakness (principal); H02.402 Unspecified ptosis of left eyelid; I10 Essential (primary) hypertension; F03.90 Unspecified dementia, unspecified severity, without behavioral disturbance, psychotic disturbance, mood disturbance, and anxiety; W18.30XA Fall on same level, unspecified, initial encounter; Z86.73 Personal history of transient ischemic attack (TIA), and cerebral infarction without residual deficits; Z85.038 Personal history of other malignant neoplasm of large intestine; I48.91 Unspecified atrial fibrillation; R42 Dizziness and giddiness; S51.812A Laceration without foreign body of left forearm, initial encounter
CPT/HCPCS: 51701; 36415; 70450; 70496; 70498; 70553; 71045; 80053; 80061; 80307; 81001; 82550; 83036; 83735; 83880; 84100; 84439; 84443; 84484; 85025; 85610; 85730; 87086; 92610; 93005; 93306; 95816; 96360; 96361; 96372; 97162; 99284; A4649; G0378; J1644; J3410; J7030; Q9967; A9270

== ENCOUNTER 2025-03-04 08:41 | Emergency (ER) | payer OTHER, SELFPAY ==
[2025-03-04 08:45] VITALS: BP 134/76; PULSE 78; RESP 18; TEMP 36.8; O2SAT 97
[2025-03-04 09:05] VITALS: PULSE 92; RESP 18; O2SAT 95; BMI 29.2
[2025-03-04 09:53] VITALS: PULSE 70
[2025-03-04 10:02] VITALS: BP 156/76; PULSE 69; RESP 18; TEMP 36.8; O2SAT 98
--- NOTE | 2025-03-04 10:20 | PD.EDFMALE ---
ED Female Urogenital RME/HPI General Chief complaint: General Adult/Misc Complain Stated complaint: WEAKNESS Arrival date/time: 03/04/25 08:41 Limitations: no limitations RME / HPI RME / HPI Narrative: DR. DOUGLAS BUTLER ED EVALUATION: 89-year-old female accompanied by her daughter presents to the Emergency Department with concern for infection. She has been around multiple people sick with the flu over [place]. The daughter was notified by a niece that the patient felt very warm with a fever. Past medical history includes several prior strokes, dementia, and recurrent UTIs. Patient reports dysuria and urinary frequency. Daughter notes the patient was shaky yesterday and appears slightly more confused than her baseline. She wears briefs for incontinence and when changed there was a strong urine odor. Daughter reports patient?s voice is normal and there are no new focal neurologic symptoms. She received a suppository three days ago for constipation with a successful bowel movement. Related Data Home Medications ?Medication ?Instructions ?Recorded ?Confirmed diltiazem HCl 240 mg 240 mg PO QDAY 12/07/17 10/22/24 capsule,extended release 24 hr famotidine 20 mg tablet 20 mg PO DAILY 12/08/17 10/22/24 calcium 600 mg (as 1 tab PO BID 10/22/24 10/22/24 carbonate)-vitamin D3 10 mcg (400 unit) tablet clopidogrel 75 mg tablet 75 mg PO QAM 10/22/24 10/22/24 donepezil 5 mg tablet 5 mg PO QDAY 10/22/24 10/22/24 lisinopril 40 mg tablet 40 mg PO QAM 10/22/24 10/22/24 memantine 5 mg tablet 5 mg PO BID 10/22/24 10/22/24 raloxifene 60 mg tablet 60 mg PO QDAY 10/22/24 10/22/24 Previous Rx's ?Medication ?Instructions ?Recorded atorvastatin 80 mg tablet 80 mg PO QPM #30 tabs 10/24/24 Allergies Allergy/AdvReac Type Severity Reaction Status Date / Time codeine Allergy Severe Nausea Verified 10/22/24 07:40 Review of Systems Review of Systems Systems Reviewed: All systems reviewed, normal except as documented Past Medical History Past Medical History NEUROLOGIC: Positive Neurological Disorders, Transient Ischemic Attacks (TIA) and Dementia CARDIAC: Positive Cardiac Disorders, Atrial Fibrillation, Hypercholesterolemia and Hypertension GASTROINTESTINAL: Positive Gastrointestinal Disorders and Colorectal Cancer MUSCULOSKELETAL: Positive Musculoskeletal Disorders and Arthritis ENT: Positive Cataracts PSYCHO/SOCIAL: Positive Anxiety OTHER HISTORY: Positive Falls, Blood Transfusions, Cancer and Colorectal Cancer Surgical History SURGICAL: Positive Bowel Surgery and Section Social History SMOKING STATUS: Never smoker SUBSTANCE USE: does not use ALCOHOL: Never ED Exam General Limitations: Present no limitations General appearance: Present alert and in no apparent distress Head Head exam: Present atraumatic, normocephalic and normal inspection Eye Eye exam: Present normal appearance, PERRL and EOMI ENT ENT exam: Present normal exam, normal oropharynx and mucous membranes moist Neck Neck exam: Present normal inspection, full ROM and trachea midline Chest Chest inspection: Present normal inspection and symmetric chest wall rise Respiratory Respiratory exam: Present normal lung sounds bilaterally Cardiovascular Cardiovascular exam: Present regular rate, normal rhythm and normal heart sounds Abdominal Exam Abdominal exam: Present soft and normal bowel sounds Extremities Exam Extremities exam: Present normal inspection and full ROM Back Exam Back exam: Present normal inspection and full ROM Neurological Exam Neurological exam: Present alert, oriented X3 and CN II-XII intact Psychiatric Psychiatric exam: Present normal affect and normal mood Skin Skin exam: Present warm, dry, intact and normal color Course Quality Measures none Orders Category Date Time Status Bedside COVID-19 Antigen Test NOW Care 03/04/25 10:20 Completed Bedside Influenza A&B Antigen Test NOW Care 03/04/25 10:21 Completed In and Out Catheter X1 Care 03/04/25 10:20 Completed XR chest 2V Stat Exams 03/04/25 10:20 Completed RSV [Respiratory Syncytial Virus Ag] Stat Lab 03/04/25 13:16 Ordered Urinalysis, C/S if Indicated Stat Lab 03/04/25 11:58 Completed Acetaminophen Tab [Tylenol ES Tab] Med 03/04/25 10:21 Discontinued 1,000 mg PO X1 ONE Vital Signs Vital signs: Vital Signs Temperature 98.3 F 03/04/25 08:45 Pulse Rate 78 03/04/25 08:45 Respiratory Rate 18 03/04/25 08:45 Blood Pressure 134/76 H 03/04/25 08:45 Pulse Oximetry (%) 97 03/04/25 08:45 Oxygen Delivery Method Room Air 03/04/25 08:45 Urogenital - Female MDM Narrative MDM Narrative:: I, Blanca Paez am scribing for and in the presence of Dr. Romero. 89-year-old female with dysuria, urinary frequency, strong urine odor, and mild confusion from baseline in the setting of dementia and prior UTIs. Normal exam. Workup initiated for urinary tract infection and infectious causes. Differential diagnoses include UTI, dehydration, and viral illness. Patient data External records reviewed:: [facility] previous records Clinical information provided by:: patient and family (daughter) Social determinants that could affect healthcare access:: none Patient has the following chronic illnesses:: Past medical history includes several prior strokes, dementia, and recurrent UTIs. How is presenting disease/condition affected by chronic disease/condition?: exacerbated by Evaluation data The following diagnostics were reviewed and interpreted by me:: lab results and radiology exam(s) Lab and/or radiology exams considered but not ordered:: none Interpretation Summary: See MDM narrative above. RADIOLOGY Procedure(s): XR chest 2V Accession Number(s): [id number] cc: Chirag Fernández MD; Anuel Lockett MD; Crow Romero MD~ Examination: PA lateral chest 2 views TECHNIQUE: Upright PA lateral chest 2 views Date and time: March 04, 2025, 1046 hours, comparison October 22, 2024 INDICATIONS: Coughing weakness today FINDINGS: Moderate hyperexpansion Mild enlargement cardiac contour Accentuation basilar bronchovascular markings. No lobar pneumonia. Again noted granuloma right upper lobe Prominent osteopenia IMPRESSION: COPD Basilar bronchitis pattern Dictated By: Anuel Lockett MD Medications / Prescriptions Medications or Prescriptions considered but not ordered:: none Medication administrations:: Medication Administration History Discontinued Medications Acetaminophen (Acetaminophen 500 Mg Tablet) 1,000 mg PO X1 ONE Stop: 03/04/25 10:22 Last Admin: 03/04/25 10:42 Dose: 1,000 mg Documented By: VRBrett see above Consultations Consultation(s) initiated? (list below): No Diagnosis Urogenital Female Differential Diagnosis: other (UTI, dehydration, and viral illness) Most likely diagnosis given after review of the tests above:: Cough Upper respiratory infection, viral Admission Indicated Admission indicated?: not indicated Admission Request Was there a request for admission?: No Disposition Plan Disposition Plan: Discharge Discharge Attestation Discharge Attestation: The patient and all family members were given an opportunity to ask questions and understood the discharge instructions. Discharge instructions specifically effects, indications for sooner follow up or return to the emergency department, and the expected course of current diagnosis. Patient condition: Stable Discharge Plan Plan Patient Disposition: HOME (Self Care) Discharge Disposition comment: Stable for discharge home Patient condition on transfer: Stable Prescriptions/Referrals Prescriptions/Med Rec: No Action famotidine 20 mg Tablet 20 mg PO DAILY diltiazem HCl 240 mg Capsule,Extended Release 24hr 240 mg PO QDAY lisinopril 40 mg tablet 40 mg PO QAM Patient Comments: TAKE 1 TABLET BY MOUTH EVERY DAY clopidogrel 75 mg tablet 75 mg PO QAM Patient Comments: TAKE 1 TABLET BY MOUTH EVERY DAY IN THE MORNING raloxifene 60 mg tablet 60 mg PO QDAY Patient Comments: TAKE 1 TABLET BY MOUTH EVERY DAY calcium carbonate-vitamin D3 600 mg-10 mcg (400 unit) tablet 1 tab PO BID Patient Comments: TAKE 1 TABLET BY MOUTH TWICE A DAY memantine 5 mg tablet 5 mg PO BID Patient Comments: TAKE 1 TABLET BY MOUTH TWICE A DAY donepezil 5 mg tablet 5 mg PO QDAY Patient Comments: TAKE 1 TABLET BY MOUTH EVERY DAY atorvastatin 80 mg tablet 80 mg PO QPM Qty: 30 0RF Referrals: Chirag Fernández MD [Primary Care Provider, Family Practice] - In 1 week Problem List Clinical Impression: Cough, Upper respiratory infection, viral Patient/Caregiver Discharge Instructions Discharge Activity: activity as tolerated Other Activity Instructions:: As tolerated Diet Instructions: No restrictions Education Materials: ED Cough Chronic Uncertain Cause Adult, ED URI, Viral, No Abx (Adult) Additional Instructions: Please return to the emergency department if you have any worsening or any further medical problems and we will help you. Otherwise you should follow-up with your primary care doctor within the next several days. Today your mom's chest x-ray showed no pneumonias. She does not have COVID or influenza and she has no urinary tract infection. Print Language: French Stand Alone Forms: [facility] Award Info., Patient Portal Info Letter
[2025-03-04 10:42] VITALS: TEMP 36.8
[2025-03-04] MEDS: ACETAMINOPHEN 500 MG TABLET 1000 MG PO (10:42)
--- NOTE | 2025-03-04 10:47 | PC.NURSE ---
PT TAKEN TO X-RAY VIA W/C
[2025-03-04 12:09] LABS: Collection Type, Urine Catheter; Squamous Epithelial Cell,Urine 0 /hpf (0-5)
[2025-03-04 13:12] LABS: Amorphous Crystals,Urine Present (Absent); Bacteria,Urine Rare; Bilirubin,Urine Negative (Negative); Blood,Urine 1+ (Negative); Clarity,Urine Clear (Clear/Hazy); Color,Urine Yellow (Lt Yel-Yel); Culture Indicated,Urine Not Indicated; Glucose, Urine Negative (Negative); Ketones,Urine Negative (Negative); Leukocyte Esterase,Urine Negative (Negative); Nitrite,Urine Negative (Negative); PH,Urine 6.0 (5.0-7.0); Protein,Urine Trace (Neg - Trace); RBC,Urine 2 /hpf (0-3); Specific Gravity,Urine 1.022 (1.001-1.035); Uric Acid Crystals,Urine Rare; Urobilinogen,Urine Negative mg/dL (0.0-1.0); WBC,Urine 1 /hpf (0-5)
== END 2025-03-04 14:48 | disposition home or self-care (01) ==
PROVIDERS: Emergency Provider Emergency Medicine; PCP Family Medicine
DX: J06.9 Acute upper respiratory infection, unspecified (principal); J44.9 Chronic obstructive pulmonary disease, unspecified; R30.0 Dysuria
CPT/HCPCS: 51701; 71046; 81001; 87502; 87634; 87635; 99283; A9270